=== PATIENT | female | born 1940 | race Caucasian/White ===

== ENCOUNTER 2019-04-08 11:24 | Emergency (ER) | payer MEDICARE, OTHER, SELFPAY ==
--- NOTE | ~2019-04-08 | XR_ITS ---
EXAMINATION: XR chest 2V DATE: 04/08/2019 12:34 INDICATION: Cough and congestion. TECHNIQUE: Frontal and lateral views of the chest were obtained. COMPARISON: Chest single view 02/17/2018, CT abdomen and pelvis 04/27/2017 FINDINGS: The lung volumes are normal. There are reticular opacities in the lower lung zones. No pleu ral effusion or pneumothorax. The heart size is normal. There is mild chronic anterior wedging of mul tiple thoracic vertebral bodies. IMPRESSION: 1. Mild chronic interstitial lung disease. Reviewed, dictated and finalized at location A. STRIAL ENGINEER
[2019-04-08 11:27] VITALS: BP 162/92; PULSE 72; RESP 16; TEMP 37.4; O2SAT 97
--- NOTE | 2019-04-08 12:40 | ED.URI ---
HPI - URI/Sore Throat General Chief Complaint: Upper Respiratory Infection Stated Complaint: Fever, ST, flu? Time Seen by Provider: 04/08/19 12:40 Source: patient Mode of arrival: ambulatory Limitations: no limitations History of Present Illness HPI Narrative: A 79 y/o female presents to the ED with c/o a productive cough with green phlegm since Thursday (3 days ago). Pt has been taking cold medicine with no relief. Pt took a cough drop this morning. She reports rhinorrhea, a sore throat, a 100 degree F fever last night, a wheeze, and a TAYLOR, but denies an earache, tinnitus, SOB, sick contacts, and a PMHx of lung problems. Pt notes that she had a syncopal episode last month and she has been wearing a heart monitor since. Onset (ago): day(s) (3) Description of mucous: green Treatments prior to arrival: cold medicine and other (cough drop) Related Data Home Medications Medication Instructions Recorded Confirmed aspirin 81 mg tablet,delayed 81 mg PO DAILY 03/01/19 03/11/19 release donepezil 10 mg tablet 10 mg PO DAILY 03/01/19 03/11/19 levothyroxine 88 mcg tablet 88 mcg PO DAILY 03/01/19 03/11/19 multivitamin with minerals 1 tablet PO DAILY 03/01/19 03/11/19 amlodipine 04/08/19 indapamide mg 04/08/19 Allergies Allergy/AdvReac Type Severity Reaction Status Date / Time codeine Allergy Intermediate vision Verified 04/08/19 11:57 changes sulfamethoxazole Allergy Mild couldn't Verified 04/08/19 11:57 urinate, Back Pain topiramate Allergy Mild Can't Verified 04/08/19 11:57 urinate trimethoprim Allergy Mild couldn't Verified 04/08/19 11:57 urinate, back pain Review of Systems Review of Systems: All systems reviewed & are unremarkable except as noted in HPI and below Constitutional: Constitutional: Reports fever(s) (100 degree F) ENT: Reports sore throat Comments: Reports: rhinorrhea Respiratory: Respiratory: Reports cough (productive with green phlegm), Denies dyspnea and Reports wheezing Neurologic: Reports headache(s) PMFSH Past Medical History Medical History Anemia Arthritis Back pain CAD (coronary artery disease) Mid left anterior descending stent in 2016 at [place] Chronic headaches Dementia GERD (gastroesophageal reflux disease) Heart attack Hemorrhoids Hypercholesteremia Hypertension Hypothyroidism Pneumonia Rectal polyp Surgical History Surgical History H/O bilateral cataract extraction History of hernia surgery History of hysterectomy History of lumpectomy X3 that were benign. History of spinal surgery History of tonsillectomy History of total right knee replacement Hx of cardiac catheterization Family History Family History Sibling Acute myocardial infarction, Onset Age: 73 Cerebrovascular accident, Onset Age: 52 Family history of lung cancer, Onset Age: 72 Patient's sister is Patient's brother is Father Cerebrovascular accident, Onset Age: 83 Patient's father is Mother Patient's mother is Heart disease Social History Social History Social History: The patient is To Colton who is her power trademark attorney. She desires to be a full code. She has 2 children. She is retired from working at a [employer] company Smoking status: Never smoker Second hand tobacco smoke exposure: Yes Alcohol intake: never Substance use: never Gender identity (if verbalized by the patient): Female Spiritual care concerns: No Agree to blood products: Yes Comments No PCP on file. Exam Narrative: Exam Narrative: GENERAL: well-nourished, and in no acute distress. HEAD: Normocephalic, atraumatic EYES: PERRLA and EOMI, conjunctiva clear without discharge EARS: TM's clear bilaterally
--- NOTE | 2019-04-08 13:49 | PC.NURSE ---
THIS RN WAS ABLE TO CALL AND SPEAK TO PT ON HOME PHONE. EXPLAINED THAT PT HAS PRESCRIPTIONS AT [facility] AND PT VOICED UNDERSTANDING.
== END 2019-04-08 13:20 | disposition home or self-care (01) ==
PROVIDERS: Emergency Provider General Practice; PCP Internal Medicine
DX: J06.9 Acute upper respiratory infection, unspecified (principal); M19.90 Unspecified osteoarthritis, unspecified site; I25.10 Atherosclerotic heart disease of native coronary artery without angina pectoris; F03.90 Unspecified dementia, unspecified severity, without behavioral disturbance, psychotic disturbance, mood disturbance, and anxiety; K21.9 Gastro-esophageal reflux disease without esophagitis; I25.2 Old myocardial infarction; E78.00 Pure hypercholesterolemia, unspecified; I10 Essential (primary) hypertension; E03.9 Hypothyroidism, unspecified; Z87.19 Personal history of other diseases of the digestive system; Z98.42 Cataract extraction status, left eye; Z98.41 Cataract extraction status, right eye; Z96.651 Presence of right artificial knee joint; Z95.5 Presence of coronary angioplasty implant and graft
CPT/HCPCS: 71046; 87804; 99283

== ENCOUNTER 2019-08-03 23:20 | Emergency (ER) | payer MEDICARE, OTHER, SELFPAY ==
--- NOTE | ~2019-08-03 | CT_ITS ---
EXAMINATION: CT brain wo con DATE: 08/04/2019 00:15 INDICATION: Weakness TECHNIQUE: Computed tomography (CT) of the head was performed without intravenous contrast. Sagittal and coronal reconstructions were performed. The mA was adjusted according to patient size. Iterative reconstruction technique was employed. The dose-length product was 529.67 mGy-cm. COMPARISON: head CT dated 03/11/2019 FINDINGS: No acute intracranial hemorrhage, acute infarction or abnormal extra axial fluid collection. There is minimal scattered white matter hypoattenuation consistent with chronic small vessel ischemic disease . Symmetric prominence of the sulci consistent with mild age-appropriate diffuse cerebral volume loss . Ventricles are normal and symmetric. No mass/mass effect. Changes of right intraocular lens replace ment. The orbits, paranasal sinuses and mastoid air cells are normal. Intracranial calcified cerebral atherosclerosis is noted. IMPRESSION: 1. No acute intracranial process. 2. Age-related changes including mild diffuse volume loss and minimal scattered white matter hypoatte nuation consistent with chronic small vessel ischemic disease. Reviewed, dictated and finalized at location A. IMPRESSION: 1. No acute intracranial process. 2. Age-related changes including mild diffuse volume loss and minimal scattered white matter hypoattenuation consistent with chronic small vessel ischemic dis ease.
--- NOTE | ~2019-08-03 | XR_ITS ---
EXAMINATION: XR chest 2V DATE: 08/04/2019 00:19 INDICATION: Weakness TECHNIQUE: frontal and lateral views of the chest were obtained. COMPARISON: Chest radiograph dated 04/08/2019 FINDINGS: Minimal left basilar atelectasis. No pulmonary edema, pleural effusion or pneumothorax. The cardiomed iastinal silhouette is normal. Moderate scattered degenerative skeletal changes in the spine and at b oth shoulders. IMPRESSION: 1. Minimal left basilar atelectasis. Reviewed, dictated and finalized at location A.
--- NOTE | 2019-08-03 23:15 | ED.GENADULT ---
HPI - General Adult General Chief complaint: Weakness Stated complaint: weakness Source: patient and EMS Mode of arrival: EMS Limitations: no limitations History of Present Illness HPI narrative: Patient is a 79-year-old female who presents to the emergency department for evaluation of weakness. Patient reports having an episode of nausea, vomiting, diarrhea this evening, has felt very weak this evening and called EMS to bring her to our facility for assessment. Patient denies any numbness, no headache or vision changes, no chest pain or abdominal pain. Patient cannot recall what she ate for dinner. She denies any fever, cough, shortness of breath, recent medication changes, recent illness or sick contacts. No focal numbness or weakness. Related Data Home Medications Medication Instructions Recorded Confirmed aspirin 81 mg tablet,delayed 81 mg PO DAILY 03/01/19 03/11/19 release donepezil 10 mg tablet 10 mg PO DAILY 03/01/19 03/11/19 multivitamin with minerals 1 tablet PO DAILY 03/01/19 03/11/19 amlodipine 04/08/19 indapamide mg 04/08/19 Allergies Allergy/AdvReac Type Severity Reaction Status Date / Time codeine Allergy Intermediate vision Verified 04/08/19 11:57 changes sulfamethoxazole Allergy Mild couldn't Verified 04/08/19 11:57 urinate, Back Pain topiramate Allergy Mild Can't Verified 04/08/19 11:57 urinate trimethoprim Allergy Mild couldn't Verified 04/08/19 11:57 urinate, back pain Review of Systems Review of Systems: Narrative: CONSTITUTIONAL: Denies fever, chills, or sweats. EYES: Denies visual changes, redness, or discharge. ENT: Denies rhinorrhea, congestion, sore throat, or otalgia. CARDIOVASCULAR: Denies chest pain, palpitations, or edema. RESPIRATORY: Denies cough or dyspnea. GASTROINTESTINAL: Denies abdominal pain, reports 1 episode of vomiting, reports one episode of diarrhea GENITOURINARY: Denies dysuria or hematuria. SKIN: Denies rash or itching. MUSCULOSKELETAL: Denies back pain, joint pain, or myalgia. 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 She desires to be a full code. She has 2 children. She is retired from working at a [employer] company Smoking status: Never smoker Second hand tobacco smoke exposure: Yes Alcohol intake: never Substance use: never Gender identity (if verbalized by the patient): Female Spiritual care concerns: No Agree to blood products: Yes Exam Narrative: Exam Narrative: GENERAL: Awake, alert, conversant HEAD: Normocephalic, atraumatic. EYES: PERRLA and EOMI. ENT: Nares clear, no rhinorrhea or epistaxis. Mucous membranes moist. NECK: Supple. CHEST: No respiratory distress, breathing even and non labored HEART: Regular rate, sinus rhythm ABDOMEN:Non distended, non tender EXTREMITIES: Normal range of motion. No edema. SKIN: Warm, dry, no rash. NEURO:No focal deficits. Alert and oriented x3.EOMs intact without nystagmus. No facial droop/asymmetry noted bilaterally. Grimace intact. Intact sensation in face. Hearing intact bilaterally. Shoulder shrug intact. Strength 5/5 bilateral upper extremities. Strength 5/5 bilateral lower extremities. Reflexes 2+ patellar. Ambulatory exam deferred. Course Course Emergency Course: Patient presented to the emergency department for evaluation of episode of vomiting, diarrhea and near syncope. At the time of assessment, ABCs are intact and vital signs are stable. No focal neurological deficits on exam. Laboratory work-up is reassuring. No severe leukocytosis or lactic acidosis, no signs to suggest severe sepsis or septic shock. No signs of acute stroke or intracranial abnormalities on imaging. No elevation in troponin or ischemic EKG changes. No UTI. Patient was given IV fluids, able to ambulate in the
[2019-08-03 23:22] VITALS: BP 127/60; PULSE 68; RESP 21; TEMP 35.8; O2SAT 99
[2019-08-03 23:54] LABS: Basophils Percent Auto 0.5 % (0.2-1.2); Eosinophils Absolute Auto 0.1 K/mm3 (0-0.3); Eosinophils Percent Auto 0.6 % (0-4.4); Hematocrit 37.1 % (37.0-47.0); Hemoglobin 12.4 g/dL (12.0-15.0); Immature Granulocyte Absolute 0.03 K/mm3 (0.00-0.031); Immature Granulocyte Percent A 0.3 % (0-0.5); Lymphocytes Absolute Auto 2.25 K/mm3 (0.9-3.2); Mean Corpuscular HGB Conc 33.4 g/dl (32-36); Mean Corpuscular Hemoglobin 29.9 pg (26-34); Mean Corpuscular Volume 89.4 fl (80-100); Mean Platelet Volume 10.6 fl (7.4-10.4); Monocytes Absolute Auto 0.6 K/mm3 (0.1-0.6); Monocytes Percent Auto 6.7 % (2.6-8.5); Neutrophils Absolute Auto 5.7 K/mm3 (1.3-6.7); Neutrophils Percent Auto 65.9 % (45.5-73.1); Platelet Count Result 219 k/mm3 (150-375); Red Blood Count 4.15 M/mm3 (4.2-5.4); Red Cell Distribution Width 14.1 % (11.5-14.5); White Blood Count 8.7 K/mm3 (4.5-10.0)
[2019-08-04 00:05] LABS: Prothrombin Time 12.5 Seconds (11.1-14.7)
--- NOTE | 2019-08-04 00:05 | PC.NURSE ---
pt states she isn't nauseated at this time. this rn holding md randell notified. pt instructed to let this rn know if she develops nausea. pt going to CT & xray at this time be stretcher.
[2019-08-04 00:06] LABS: Lactic Acid Reflex 2.2 mmol/L (0.7-2.1); Partial Thromboplastin Time 30.9 SECONDS (22.3-36.8)
[2019-08-04 00:07] LABS: Lipase 197 U/L (23-300)
[2019-08-04 00:14] LABS: Alanine Aminotransferase 19 U/L (4-35); Albumin Level 4.5 g/dL (3.5-5.1); Alkaline Phosphatase 94 U/L (38-126); Aspartate Amino Transferase 29 U/L (14-36); Bilirubin,Total 0.3 mg/dL (0.2-1.3); Blood Urea Nitrogen 19 mg/dL (7-17); CRP < 0.5 mg/dL (<1.0); Calcium 9.2 mg/dL (8.4-10.2); Carbon Dioxide 24 mmol/L (22-30); Chloride 102 mmol/L (98-107); Estimated Glomerular Filt Rate > 60; Glucose 138 mg/dL (65-105); Potassium 3.8 mmol/L (3.4-5.0); Sodium 138 mmol/L (137-145)
[2019-08-04 00:19] LABS: Add Urine Microscopic? YES; Appearance Urine Clear (Clear); Bacteria Urine Trace /hpf; Bilirubin Urine Negative (Negative); Blood Urine Negative (Negative); Color Urine Straw (Yellow); Glucose Urine UA Negative (Negative); Ketones Urine 1+ mg/dL (Negative); Leukocyte Esterase Ur Negative LEU/UL (Negative); Mucus Urine Rare /lpf; Nitrate Urine Negative (Negative); Protein Urine Negative (Negative); Specific Grav Ur 1.011 (1.001-1.035); Urobilinogen Urine Negative mg/dL (<2.0); WBC Urine 0-3 /hpf
[2019-08-04 00:19] LABS: Troponin I < 0.012 ng/mL (0.000-0.034)
[2019-08-04 00:37] LABS: Thyroid Stimulating Hormone 0.184 uIU/mL (0.465-4.680)
[2019-08-04 00:45] VITALS: BP 130/81; PULSE 62; RESP 16; O2SAT 99
[2019-08-04] MEDS: SODIUM CHLORIDE 0.9% IV 1,000 ML 999 ML IV CONT (00:46)
[2019-08-04 01:18] VITALS: BP 138/78; PULSE 67; RESP 16; O2SAT 96
--- NOTE | 2019-08-04 01:26 | PC.NURSE ---
pt given water per md verbal order. pt ambulated to restroom w/ no difficulty.
[2019-08-04 01:50] VITALS: BP 136/67; PULSE 65; RESP 15; O2SAT 94
[2019-08-04] MEDS: ONDANSETRON INJ 4 MG/2 ML VIAL (01:50)
[2019-08-04 02:52] LABS: Reflex Lactic Acid Yes or No Add Lactic
== END 2019-08-04 01:50 | disposition home or self-care (01) ==
PROVIDERS: Emergency Provider Emergency Medicine; PCP Internal Medicine
DX: E86.0 Dehydration (principal); R11.0 Nausea
CPT/HCPCS: 36415; 70450; 71046; 80053; 81001; 83605; 83690; 84443; 84484; 85025; 85610; 85730; 86140; 87040; 96361; 96374; 99284; J2405; J7030

== ENCOUNTER 2020-06-20 17:35 | Emergency (ER) | payer MEDICARE, SELFPAY ==
--- NOTE | ~2020-06-20 | XR_ITS ---
EXAMINATION: XR chest 2V DATE: 06/20/2020 18:36 INDICATION: Weakness, nausea and vomiting TECHNIQUE: PA and lateral views of the chest were obtained. COMPARISON: Chest radiograph dated 08/04/2019 FINDINGS: Again seen is minimal streaky left basilar atelectasis/scarring. No new airspace opacities, pulmonary edema, pleural effusion or pneumothorax. The cardiomediastinal silhouette is normal. Tortuous athero sclerotic aorta. Thoracic kyphosis with chronic minimal to mild anterior wedging of a few mid and low er thoracic vertebral bodies. Moderate thoracic spondylosis. IMPRESSION: 1. Unchanged minimal left basilar atelectasis/scarring. Reviewed, dictated and finalized at location A.
[2020-06-20 18:05] VITALS: BP 151/93; PULSE 65; RESP 18; TEMP 36.1; O2SAT 99
--- NOTE | 2020-06-20 18:10 | ECG_ITS ---
Measurements Intervals [place] Rate: 62 P: -1 MD: 175 QRS: -45 QRSD: 94 T: 15 QT: 351 QTc: 357 Interpretive Statements SINUS RHYTHM LEFT AXIS DEVIATION VOLTAGE CRITERIA FOR LVH BORDERLINE R WAVE PROGRESSION, ANTERIOR LEADS BASELINE ARTIFACT- I, II, III, AVR, AVL BORDERLINE ECG Electronically Signed On 06-21-2020 7:05:34 CDT by Quentin Jay D.O.
[2020-06-20 18:21] LABS: Basophils Percent Auto 0.3 % (0.2-1.2); Eosinophils Percent Auto 0.2 % (0-4.4); Hematocrit 37.1 % (37.0-47.0); Hemoglobin 12.4 g/dL (12.0-15.0); Immature Granulocyte Absolute 0.02 K/mm3 (0.00-0.031); Immature Granulocyte Percent A 0.2 % (0-0.5); Lymphocytes Absolute Auto 1.32 K/mm3 (0.9-3.2); Lymphocytes Percent Auto 15.1 % (18.3-44.2); Mean Corpuscular HGB Conc 33.4 g/dl (32-36); Mean Corpuscular Hemoglobin 29.3 pg (26-34); Mean Corpuscular Volume 87.7 fl (80-100); Mean Platelet Volume 9.5 fl (7.4-10.4); Monocytes Absolute Auto 0.5 K/mm3 (0.1-0.6); Monocytes Percent Auto 5.5 % (2.6-8.5); Neutrophils Absolute Auto 6.9 K/mm3 (1.3-6.7); Neutrophils Percent Auto 78.7 % (45.5-73.1); Platelet Count Result 259 k/mm3 (150-375); Red Blood Count 4.23 M/mm3 (4.2-5.4); Red Cell Distribution Width 13.6 % (11.5-14.5); White Blood Count 8.8 K/mm3 (4.5-10.0)
[2020-06-20 18:33] LABS: Alanine Aminotransferase 14 U/L (4-35); Albumin Level 4.5 g/dL (3.5-5.1); Alkaline Phosphatase 91 U/L (38-126); Anion Gap 5 mmol/L (8-16); Aspartate Amino Transferase 32 U/L (14-36); Bilirubin,Total 0.7 mg/dL (0.2-1.3); Blood Urea Nitrogen 18 mg/dL (7-17); Calcium 9.5 mg/dL (8.4-10.2); Carbon Dioxide 32 mmol/L (22-30); Chloride 104 mmol/L (98-107); Estimated Glomerular Filt Rate 36; Glucose 129 mg/dL (65-105); Sodium 141 mmol/L (137-145)
[2020-06-20 19:01] VITALS: BP 187/84; PULSE 60; RESP 13; O2SAT 98
[2020-06-20 20:01] LABS: Add Urine Microscopic? YES; Appearance Urine Clear (Clear); Bilirubin Urine Negative (Negative); Blood Urine Negative (Negative); Color Urine Yellow (Yellow); Glucose Urine UA Negative (Negative); Ketones Urine Negative (Negative); Leukocyte Esterase Ur Negative LEU/UL (Negative); Mucus Urine Rare /lpf; Nitrate Urine Negative (Negative); Protein Urine 1+ mg/dL (Negative); RBC Urine 0-2 /hpf (0-2); Specific Grav Ur 1.013 (1.001-1.035); Urobilinogen Urine Negative mg/dL (<2.0); WBC Urine 0-3 /hpf
--- NOTE | 2020-06-20 20:19 | ED.NAVMDI ---
HPI - Nausea/Vomiting/Diarrhea General Chief complaint: Nausea/Vomiting/Diarrhea Stated complaint: n/v, feeling faint Time Seen by Provider: 06/20/20 19:00 Source: patient and family Mode of arrival: ambulatory Limitations: no limitations History of Present Illness HPI Narrative: 80-year-old female Fairly healthy except for hypothyroid and slight dementia Presents because of episodes of nausea and vomiting today No one else is sick and she cannot think of anything that she might of consumed which would have triggered or caused this She does not have any abdominal pain, she does not have a fever, and she does not have any diarrhea Denies urinary complaints Many years ago she had a hysterectomy but no other abdominal procedures Currently is been about 3-1/2 hours since the last time she vomited Related Data Home Medications Medication Instructions Recorded Confirmed aspirin 81 mg tablet,delayed 81 mg PO DAILY 03/01/19 11/07/19 release donepezil 10 mg tablet 10 mg PO DAILY 03/01/19 11/07/19 multivitamin with minerals 1 tablet PO DAILY 03/01/19 11/07/19 amlodipine 04/08/19 11/07/19 indapamide mg 04/08/19 11/07/19 Allergies Allergy/AdvReac Type Severity Reaction Status Date / Time codeine Allergy Intermediate vision Verified 04/08/19 11:57 changes sulfamethoxazole Allergy Mild couldn't Verified 04/08/19 11:57 urinate, Back Pain topiramate Allergy Mild Can't Verified 04/08/19 11:57 urinate trimethoprim Allergy Mild couldn't Verified 04/08/19 11:57 urinate, back pain Review of Systems Review of Systems: All systems reviewed & are unremarkable except as noted in HPI and below Constitutional: Constitutional: Reports no additional constitutional complaints, Denies chills, Reports fatigue, Denies fever(s), Denies headache(s) and Reports weakness Eyes: Eyes: Reports no additional eye complaints and Denies change in vision ENT: Denies headache(s) and Denies sore throat Cardiovascular: Cardiovascular: Denies chest pain and Denies dyspnea Respiratory: Respiratory: Denies cough and Denies dyspnea Gastrointestinal: Gastrointestinal: Denies abdominal pain, Denies bloating, Denies diarrhea, Reports nausea and Reports vomiting Genitourinary: Genitourinary: Denies urinary frequency, Denies nocturia, Denies dysuria and Denies flank pain Musculoskeletal: Musculoskeletal: Denies myalgias, Denies deformity and Denies numbness Integumentary/Breasts: Skin/Breast: Denies rash and Denies wounds Neurologic: Denies headache(s), Denies focal weakness and Denies numbness Psychiatric: Psychiatric: Reports no additional psychiatric complaints Endocrine: Endocrine: Reports no additional endocrine complaints Hematologic/Lymphatic: Hematologic/Lymphatic: Reports no additional hematologic/lymphatic complaints Allergic/Immunologic: Allergic/Immunologic: Reports no additional allergic/immunologic complaints [facility] Past Medical History Medical History (Updated 06/20/20 @ 20:24 by Alonso Hobson MD) Anemia Arthritis Back pain CAD (coronary artery disease) Mid left anterior descending stent in 2016 at [facility] Dementia GERD (gastroesophageal reflux disease) Heart attack Hemorrhoids Hypercholesteremia Hypertension Hypothyroidism Pneumonia Rectal polyp Surgical History Surgical History H/O bilateral cataract extraction History of hernia surgery History of hysterectomy History of lumpectomy X3 that were benign. History of spinal surgery History of tonsillectomy History of total right knee replacement Hx of cardiac catheterization Family History Family History Sibling Acute myocardial infarction, Onset Age: 73 Cerebrovascular accident, Onset Age: 52 Family history of lung cancer, Onset Age: 72 Patient's sister is Patient's bro
[2020-06-20] MEDS: LACTATED RINGERS 1,000 ML 999 ML IV CONT (20:29)
[2020-06-20] MEDS: ONDANSETRON INJ 4 MG/2 ML VIAL IV PUSH (20:29)
[2020-06-20 20:39] VITALS: BP 176/77; PULSE 64; RESP 17
[2020-06-20 21:25] VITALS: BP 173/70; PULSE 68; RESP 18; O2SAT 97
== END 2020-06-20 21:25 | disposition home or self-care (01) ==
PROVIDERS: Emergency Medicine; Emergency Provider Emergency Medicine; PCP Internal Medicine
DX: R11.2 Nausea with vomiting, unspecified (principal); E03.9 Hypothyroidism, unspecified; F03.90 Unspecified dementia, unspecified severity, without behavioral disturbance, psychotic disturbance, mood disturbance, and anxiety; I25.10 Atherosclerotic heart disease of native coronary artery without angina pectoris; I25.2 Old myocardial infarction; E78.00 Pure hypercholesterolemia, unspecified; I10 Essential (primary) hypertension; K21.9 Gastro-esophageal reflux disease without esophagitis; M19.90 Unspecified osteoarthritis, unspecified site; Z95.5 Presence of coronary angioplasty implant and graft; Z87.19 Personal history of other diseases of the digestive system; Z98.42 Cataract extraction status, left eye; Z98.41 Cataract extraction status, right eye; Z96.651 Presence of right artificial knee joint
CPT/HCPCS: 36415; 71046; 80053; 81001; 85025; 93005; 96361; 96374; 99284; J2405; J7120

== ENCOUNTER → 2020-07-14 02:16 | Outpatient (CLI) | payer MEDICARE, SELFPAY ==
[2020-07-14 19:56] LABS: SARS-CoV-2 RNA PCR Negative
== END ==
PROVIDERS: PCP Internal Medicine; Visit Provider Internal Medicine Gastroenterology
DX: Z01.812 Encounter for preprocedural laboratory examination (principal); Z20.822 Contact with and (suspected) exposure to COVID-19
CPT/HCPCS: C9803; U0003; U0005

== ENCOUNTER 2020-07-17 02:40 | Day surgery (SDC) | payer MEDICARE, OTHER, SELFPAY ==
[2020-07-06 09:59] VITALS: BMI 24.4
[2020-07-17 08:43] VITALS: BP 155/82; PULSE 56; RESP 18; TEMP 35.7; O2SAT 99; BMI 25.9
[2020-07-17] MEDS: LACTATED RINGERS 1,000 ML 150 ML IV CONT (08:56)
--- NOTE | 2020-07-17 09:18 | PM.HPGS ---
History of Present Illness History of Present Illness Consent: Risks, benefits, and alternatives have been discussed and questions answered. Patient agrees to proceed with procedure. Chief complaint: nausea, vomiting Narrative: Ligia Sanderson is a 80 year old female with been suffering from persistent nausea and vomiting. Investigation in the emergency room did not find a cause Review of Systems Review of Systems: All systems reviewed & are unremarkable except as noted in HPI and below PMFSH Past Medical History Medical History Anemia Arthritis Back pain CAD (coronary artery disease) Mid left anterior descending stent in 2016 at [facility] Dementia GERD (gastroesophageal reflux disease) Heart attack Hemorrhoids Hypercholesteremia Hypertension Hypothyroidism Pneumonia Rectal polyp Surgical History Surgical History H/O bilateral cataract extraction History of hernia surgery History of hysterectomy History of lumpectomy X3 that were benign. 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 She desires to be a full code. She has 2 children. She is retired from working at a [employer] Smoking status: Never smoker Second hand tobacco smoke exposure: Yes Alcohol intake: never Substance use: never Substance use type: does not use Living arrangements: with family Gender identity (if verbalized by the patient): Female Spiritual care concerns: No Agree to blood products: Yes Meds Home Medications and Allergies Home Medications Medication Instructions Recorded Confirmed Type aspirin 81 mg tablet,delayed 81 mg PO DAILY 03/01/19 07/06/20 History release multivitamin with minerals 1 tablet PO DAILY 03/01/19 07/06/20 History amlodipine 10 mg PO DAILY 04/08/19 07/06/20 History indapamide 1.25 mg PO DAILY 04/08/19 07/06/20 History levothyroxine 88 mcg tablet 88 mcg PO DAILY #90 tablet 02/19/20 07/06/20 Rx Allergies Allergy/AdvReac Type Severity Reaction Status Date / Time codeine Allergy Intermediate vision Verified 07/17/20 08:41 changes sulfamethoxazole Allergy Mild couldn't Verified 07/17/20 08:41 urinate, Back Pain topiramate Allergy Mild Can't Verified 07/17/20 08:41 urinate trimethoprim Allergy Mild couldn't Verified 07/17/20 08:41 urinate, back pain Vital Signs Vital Signs - 24 hr 07/17/20 08:43 Temperature 35.7 C L Pulse Rate 56 L Respiratory Rate 18 Blood Pressure 155/82 H Pulse Oximetry 99 Exam Const: General: alert Orientation/consciousness: patient oriented x3 Resp: Auscultation: clear to auscultation bilaterally Cardio: Rhythm: regular rhythm GI: GI Palp: Yes Soft to palpation and No Tenderness to palpation present (GI) Neuro: General: patient oriented x3 Assessment and Plan Assessment and plan (1) Nausea & vomiting: Qualifiers: Vomiting type: unspecified Vomiting Intractability: non-intractable Qualified Code(s): R11.2 - Nausea with vomiting, unspecified Code(s): R11.2 - Nausea with vomiting, unspecified Status: Acute Assessment and Plan: EGD with possible biopsy or dilata
--- NOTE | 2020-07-17 09:21 | WPDANESEPPF ---
Anes - Initial Pre Proc Eval Procedure: Operation Date: 07/17/20 10:00 Proposed Procedures p Esophagogastroduodenoscopy - Jeremy Bejarano MD Date/Time: 07/17/20 09:21 Surgeon: Jeremy Bejarano MD Pre Op Diagnosis: nausea, vomiting Patient Data Age: 80 Gender: F Height: 4 ft 10 in Weight: 56.2 kg Last Vital Signs Temp 96.3 F L 07/17/20 08:43 Pulse 56 L 07/17/20 08:43 Resp 18 07/17/20 08:43 BP 155/82 H 07/17/20 08:43 Pulse Ox 99 07/17/20 08:43 Allergies Allergy/AdvReac Type Severity Reaction Status Date / Time codeine Allergy Intermediate vision Verified 07/17/20 08:41 changes sulfamethoxazole Allergy Mild couldn't Verified 07/17/20 08:41 urinate, Back Pain topiramate Allergy Mild Can't Verified 07/17/20 08:41 urinate trimethoprim Allergy Mild couldn't Verified 07/17/20 08:41 urinate, back pain Home Medications Medication Instructions Recorded Confirmed Type aspirin 81 mg tablet,delayed 81 mg PO DAILY 03/01/19 07/06/20 History release multivitamin with minerals 1 tablet PO DAILY 03/01/19 07/06/20 History amlodipine 10 mg PO DAILY 04/08/19 07/06/20 History indapamide 1.25 mg PO DAILY 04/08/19 07/06/20 History levothyroxine 88 mcg tablet 88 mcg PO DAILY #90 tablet 02/19/20 07/06/20 Rx Patient hx anesthesia problems: none Family hx anesthesia problems: none PMFSH Past Medical History Medical History Anemia Arthritis Back pain CAD (coronary artery disease) Mid left anterior descending stent in 2016 at [place] Chronic headaches Dementia GERD (gastroesophageal reflux disease) Heart attack Hemorrhoids Hypercholesteremia Hypertension Hypothyroidism Pneumonia Rectal polyp Surgical History Surgical History H/O bilateral cataract extraction History of hernia surgery History of hysterectomy History of lumpectomy X3 that were benign. 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 She desires to be a full code. She has 2 children. She is retired from working at a [employer] company Smoking status: Never smoker Second hand tobacco smoke exposure: Yes Alcohol intake: never Substance use: never Substance use type: does not use Living arrangements: with family Gender identity (if verbalized by the patient): Female Spiritual care concerns: No Agree to blood products: Yes Anes - Eval Final PreProcedure Day of Procedure 07/17/20 09:21 Patient weight: normal Heart: regular rate and rhythm Lungs: clear to auscultation Airway: Mallampati scale class II Neurological: alert and oriented Last oral intake: >/= 8 hours ASA classification: III Emergent: no Anesthetic plan: proceed Anesthesia type and monitoring: general GIVS and standard monitoring Informed Consent: The patient's anesthetic plan and its attendant risks and benefits were discussed with the patient/family/POA. Questions were solicited and answers provided to the satisfaction of the patient/family/POA.
[2020-07-17] MEDS: BENZOCAINE (*SP) 60 ML SPRAY CAN (HURRICAINE) 1 SPRAY MUCOUS MEM (09:33)
[2020-07-17 09:39] VITALS: BP 123/63; PULSE 52; RESP 17; O2SAT 98
[2020-07-17 09:49] VITALS: BP 119/63; PULSE 56; RESP 20; O2SAT 98
[2020-07-17 09:59] VITALS: BP 165/82; PULSE 49; RESP 19; O2SAT 97
== END 2020-07-17 10:11 | disposition home or self-care (01) ==
PROVIDERS: PCP Internal Medicine; Visit Provider Internal Medicine Gastroenterology
PROC: 0DJ08ZZ Inspection of Upper Intestinal Tract, Via Natural or Artificial Opening Endoscopic (ICD-10-PCS; CPT 43235; principal; 2020-07-17 10:00)
DX: R11.2 Nausea with vomiting, unspecified (principal); K21.9 Gastro-esophageal reflux disease without esophagitis; I25.10 Atherosclerotic heart disease of native coronary artery without angina pectoris; I10 Essential (primary) hypertension; I25.2 Old myocardial infarction; E03.9 Hypothyroidism, unspecified; E78.00 Pure hypercholesterolemia, unspecified; M19.90 Unspecified osteoarthritis, unspecified site; M54.9 Dorsalgia, unspecified; F03.90 Unspecified dementia, unspecified severity, without behavioral disturbance, psychotic disturbance, mood disturbance, and anxiety; Z86.010 Personal history of colon polyps; Z98.42 Cataract extraction status, left eye; Z98.41 Cataract extraction status, right eye; Z90.710 Acquired absence of both cervix and uterus; Z96.651 Presence of right artificial knee joint; Z87.19 Personal history of other diseases of the digestive system
CPT/HCPCS: 43239; 87081; J2704; J7120

== ENCOUNTER 2022-02-19 10:47 | Emergency (ER) | payer MEDICARE, OTHER, SELFPAY ==
--- NOTE | ~2022-02-19 | XR_ITS ---
Lumbosacral Spine: AP and lateral views Clinical History: Pain COMPARISON: 11/10/2014 Findings: The normal lordotic curve is maintained. No fracture seen. Grade 1 anterolisthesis of L4 ov er L5 present. The intervertebral disc spaces are preserved. Extensive facet joint degenerative lemons es are present from L2 through S1. The sacroiliac joints are normally outlined. Impression: Extensive facet joint or changes, similar to prior exam. Stable grade 1 anterolisthesis of L4 over L5. Reviewed, dictated and finalized at location M. S[facility]AMP Impression: Extensive facet joint or changes, similar to prior exam. Stable grade 1 anterolisthesis of L4 over L5.
--- NOTE | ~2022-02-19 | CT_ITS ---
Noncontrast CT scan of the cervical spine Technique: Multiple contiguous axial [address] images of the cervical spine were obtained and rec onstructed in 2D sagittal and coronal planes on the acquisition scanner. Dose reduction technique was used on this scan by utilizing automated exposure control, adjustment of the mA and/or kV according to patient size. Clinical History: Pain COMPARISON: 03/11/2019 Findings: No fractures or dislocations. Scattered facet joint degenerative changes are present. The intervertebral disc spaces are preserved. No prevertebral soft tissue swelling. Impression: No fracture or subluxation of the cervical spine. Reviewed, dictated and finalized at location M. WORKER Impression: No fracture or subluxation of the cervical spine.
--- NOTE | ~2022-02-19 | CT_ITS ---
EXAMINATION: CT brain wo con DATE: 02/19/2022 12:09 INDICATION: Fall with head injury and loss of consciousness TECHNIQUE: Computed tomography (CT) of the head was performed without intravenous contrast. Sagittal and coronal reconstructions were performed. The mA was adjusted according to patient size. Iterative reconstruction technique was employed. The dose-length product was 529.67 mGy-cm. COMPARISON: head CT dated 08/04/2019 FINDINGS: No fracture. No acute intracranial hemorrhage, acute infarction or abnormal extra axial fluid collect ion. There is minimal scattered white matter hypoattenuation consistent with chronic small vessel isc hemic disease. Symmetric prominence of the sulci consistent with mild age-appropriate diffuse cerebra l volume loss. Ventricles are normal and symmetric. No mass/mass effect. Changes of bilateral intraoc ular lens replacement. The orbits, paranasal sinuses and mastoid air cells are normal. IMPRESSION: 1. No fracture or acute intracranial process. 2. Age-related changes including mild diffuse volume loss and minimal scattered white matter hypoatte nuation consistent with chronic small vessel ischemic disease. Reviewed, dictated and finalized at location A. ER SKIN DIVER IMPRESSION: 1. No fracture or acute intracranial process. 2. Age-related changes including mild diffuse volume loss and minimal scattered white matter hypoattenuation consistent with chronic small vessel ischemic dis ease.
[2022-02-19 11:14] VITALS: BP 132/71; PULSE 67; RESP 16; TEMP 36.7; O2SAT 96
--- NOTE | 2022-02-19 11:50 | PC.NURSE ---
Dr. Enamorado at bedside to assess pt.
--- NOTE | 2022-02-19 12:17 | PC.NURSE ---
Patient off unit to CT.
[2022-02-19 12:50] LABS: Basophils Percent Auto 0.5 % (0.2-1.2); Eosinophils Absolute Auto 0.1 K/mm3 (0-0.3); Eosinophils Percent Auto 1.2 % (0-4.4); Hematocrit 42.8 % (37.0-47.0); Hemoglobin 13.8 g/dL (12.0-15.0); Immature Granulocyte Absolute 0.02 K/mm3 (0.00-0.031); Immature Granulocyte Percent A 0.4 % (0-0.5); Lymphocytes Absolute Auto 0.93 K/mm3 (0.9-3.2); Lymphocytes Percent Auto 16.5 % (18.3-44.2); Mean Corpuscular HGB Conc 32.2 g/dl (32-36); Mean Corpuscular Hemoglobin 29.5 pg (26-34); Mean Corpuscular Volume 91.5 fl (80-100); Monocytes Absolute Auto 0.2 K/mm3 (0.1-0.6); Monocytes Percent Auto 3.6 % (2.6-8.5); Neutrophils Absolute Auto 4.4 K/mm3 (1.3-6.7); Neutrophils Percent Auto 77.8 % (45.5-73.1); Platelet Count Result 216 k/mm3 (150-375); Red Blood Count 4.68 M/mm3 (4.2-5.4); Red Cell Distribution Width 13.8 % (11.5-14.5); White Blood Count 5.6 K/mm3 (4.5-10.0)
[2022-02-19 12:53] LABS: Add Urine Microscopic? YES; Appearance Urine Slightly Cloudy (Clear); Bilirubin Urine Negative (Negative); Blood Urine Negative (Negative); Color Urine Yellow (Yellow); Glucose Urine UA Negative (Negative); Ketones Urine Negative (Negative); Leukocyte Esterase Ur Trace LEU/UL (Negative); Nitrate Urine Negative (Negative); Protein Urine Trace mg/dL (Negative); Specific Grav Ur >= 1.030 (1.001-1.035); Urobilinogen Urine 0.2 mg/dL (<2.0); pH Urine 5.5 (5.0-9.0)
[2022-02-19 12:59] LABS: Alanine Aminotransferase 23 U/L (6-35); Albumin Level 4.1 g/dL (3.5-5.1); Alkaline Phosphatase 108 U/L (38-126); Anion Gap 8 mmol/L (8-16); Aspartate Amino Transferase 28 U/L (14-36); Bilirubin,Total 0.4 mg/dL (0.2-1.3); Blood Urea Nitrogen 13 mg/dL (7-17); Calcium 8.6 mg/dL (8.4-10.2); Carbon Dioxide 28 mmol/L (22-30); Chloride 108 mmol/L (98-107); Estimated Glomerular Filt Rate 43; Glucose 99 mg/dL (65-110); Sodium 144 mmol/L (137-145)
[2022-02-19 13:03] LABS: Mucus Urine Few /lpf; Squamous Epithelial Cell Urine Few /hpf (Few); WBC Urine 16-20 /hpf
[2022-02-19 13:05] LABS: INR 1.2; Prothrombin Time 14.3 Seconds (11.1-14.7)
[2022-02-19 13:06] LABS: Partial Thromboplastin Time 37.3 SECONDS (22.3-36.8)
--- NOTE | 2022-02-19 14:18 | ED.FALL ---
HPI - Fall General Chief Complaint: Fall Stated Complaint: glf off bed rt back pain Time Seen by Provider: 02/19/22 11:44 Source: patient and RN notes reviewed Mode of arrival: ambulatory Limitations: no limitations History of Present Illness HPI Narrative: This is an 81 year old female who presents for evaluation after a fall. She states she accidentally fell last night. SHe is unsure of the cause of her fall but she denies dizziness. She states she thinks she hit back of her head. She also reports right lower back pain and neck pain since her fall. She has been taking tylenol for her pain. She denies chest pain, sob, abdominal pain, or urinary symptoms. Her pain is worse with movement. She has not taken anything for pain today. Related Data Home Medications Medication Instructions Recorded Confirmed aspirin 81 mg tablet,delayed 81 mg PO DAILY 03/01/19 08/14/21 release (Adult Low Dose Aspirin) multivitamin with minerals 1 tablet PO DAILY 03/01/19 08/14/21 (Hair,Skin and Nails tablet) indapamide 1.25 mg tablet 1.25 mg PO DAILY 04/08/19 08/14/21 Allergies Allergy/AdvReac Type Severity Reaction Status Date / Time codeine Allergy Intermediate vision Verified 02/19/22 11:16 changes sulfamethoxazole Allergy Mild couldn't Verified 02/19/22 11:16 urinate, Back Pain topiramate Allergy Mild Can't Verified 02/19/22 11:16 urinate trimethoprim Allergy Mild couldn't Verified 02/19/22 11:16 urinate, back pain Review of Systems Constitutional: Constitutional: Denies weakness Cardiovascular: Cardiovascular: Denies syncope, Denies rapid heart rate, Denies irregular heart rhythm, Denies leg edema and Denies dyspnea Respiratory: Respiratory: Denies chest congestion, Denies hemoptysis, Denies excessive phlegm production and Denies dyspnea Gastrointestinal: Gastrointestinal: Denies abdominal pain, Denies hematochezia, Denies diarrhea and Denies vomiting Genitourinary: Genitourinary: Denies hematuria and Denies dysuria Musculoskeletal: Musculoskeletal: Reports back pain, Denies joint swelling, Denies loss of height and Denies muscle weakness Neurologic: Denies syncope, Denies focal weakness and Denies weakness [facility] Past Medical History Medical History (Updated 02/19/22 @ 14:27 by Blessing Enamorado MD) Anemia Arthritis Back pain CAD (coronary artery disease) Mid left anterior descending stent in 2016 at [place] Chronic headaches Dementia GERD (gastroesophageal reflux disease) Heart attack Hemorrhoids Hypercholesteremia Hypertension Hypothyroidism Pneumonia Rectal polyp Surgical History Surgical History H/O bilateral cataract extraction History of hernia surgery History of hysterectomy History of lumpectomy X3 that were benign. 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 She desires to be a full code. She has 2 children. She is retired from working at a [employer] company Smoking status: Never smoker Second hand tobacco smoke exposure: Yes Alcohol intake: never Substance use: never Substance use type: does not use Gender identity (if verbalized by the patient): Female Spiritual care concerns: No Agree to blood products: Yes
[2022-02-19 14:50] VITALS: BP 148/75; PULSE 52; RESP 18; O2SAT 98
== END 2022-02-19 14:52 | disposition home or self-care (01) ==
PROVIDERS: Emergency Provider General Practice; PCP Internal Medicine
DX: S39.92XA Unspecified injury of lower back, initial encounter (principal); S09.90XA Unspecified injury of head, initial encounter; N39.0 Urinary tract infection, site not specified; I25.10 Atherosclerotic heart disease of native coronary artery without angina pectoris; F03.90 Unspecified dementia, unspecified severity, without behavioral disturbance, psychotic disturbance, mood disturbance, and anxiety; I25.2 Old myocardial infarction; E78.00 Pure hypercholesterolemia, unspecified; I10 Essential (primary) hypertension; E03.9 Hypothyroidism, unspecified; K21.9 Gastro-esophageal reflux disease without esophagitis; Z86.2 Personal history of diseases of the blood and blood-forming organs and certain disorders involving the immune mechanism; Z87.01 Personal history of pneumonia (recurrent); Z87.19 Personal history of other diseases of the digestive system; Z98.42 Cataract extraction status, left eye; Z98.41 Cataract extraction status, right eye; Z90.710 Acquired absence of both cervix and uterus; Z96.651 Presence of right artificial knee joint; Z79.82 Long term (current) use of aspirin; W19.XXXA Unspecified fall, initial encounter
CPT/HCPCS: 36415; 70450; 72100; 72125; 80053; 81001; 85025; 85610; 85730; 87086; 87088; 96365; 99284; J0131

== ENCOUNTER 2022-03-17 09:58 | Outpatient (CLI) | payer MEDICARE, OTHER, SELFPAY ==
[2022-03-17 10:20] LABS: Appearance Urine Cloudy (Clear); Bilirubin Urine Negative (Negative); Blood Urine 2+ (Negative); Color Urine Yellow (Yellow); Glucose Urine UA Negative (Negative); Ketones Urine Negative (Negative); Leukocyte Esterase Ur 3+ LEU/UL (NEGATIVE); Nitrate Urine Negative (Negative); Protein Urine 2+ mg/dL (Negative); Specific Grav Ur >= 1.030 (1.001-1.035)
[2022-03-17 10:27] LABS: RBC Urine 21-50 /hpf (0-2); Squamous Epithelial Cell Urine Moderate /hpf (Few); WBC Clumps Urine Present /HPF; WBC Urine >75 /hpf (0-3)
[2022-03-17 10:28] LABS: Add Urine Microscopic? YES
== END 2022-03-17 09:59 | disposition home or self-care (01) ==
PROVIDERS: PCP Physician Assistant; Visit Provider Physician Assistant
DX: R30.0 Dysuria (principal)
CPT/HCPCS: 81001; 87077; 87086; 87186

== ENCOUNTER 2023-04-01 11:48 | Outpatient (CLI) | payer MEDICARE, OTHER, SELFPAY | END 2023-04-01 11:49 | disposition home or self-care (01) | LOC: ANHLAB 11:52 | PROVIDERS: PCP Internal Medicine; Visit Provider Physician Assistant | DX: R30.0 Dysuria (principal) | CPT/HCPCS: 87086 ==

== ENCOUNTER 2024-01-29 15:12 | Emergency (ER) | payer MEDICARE, OTHER, SELFPAY ==
[2024-01-29 15:13] VITALS: BP 180/86; PULSE 76; RESP 16; TEMP 36.4; O2SAT 99
[2024-01-29 16:58] VITALS: BP 186/82; PULSE 68; RESP 18; TEMP 36.8; O2SAT 98
--- NOTE | 2024-01-29 17:37 | ED.BACK ---
HPI - Back Pain/Injury General Chief Complaint: Back Pain/Injury Stated Complaint: back pain and spasms Time Seen by Provider: 01/29/24 17:04 Source: patient Mode of arrival: ambulatory Limitations: no limitations History of Present Illness HPI Narrative: This is a 83-year-old female who presents to the ED for chief complaint of back pain and back spasms this started this morning around 0 600. Patient reports that she has been moving and putting up a lot of [place] to core. States that she thinks she over did it and strained her back. Reports a spasm like pain throughout the right side of the low back. Denies any specific injury, trauma or fall. Denies lower extremity numbness or weakness. Denies saddle anesthesia, bowel or bladder dysfunction. Denies urinary symptoms, fevers, chills or abdominal pain. Denies nausea, vomiting. Related Data Home Medications Medication Instructions Recorded Confirmed aspirin 81 mg tablet,delayed 81 mg PO DAILY 03/01/19 08/26/23 release (Adult Low Dose Aspirin) multivitamin with minerals 1 tablet PO DAILY 03/01/19 08/26/23 (Hair,Skin and Nails tablet) indapamide 1.25 mg tablet 1.25 mg PO DAILY 04/08/19 08/26/23 bisacodyl 5 mg tablet 5 mg PO QHS 10/31/22 08/26/23 gabapentin 400 mg capsule 400 mg PO TID 10/31/22 08/26/23 mirtazapine 15 mg tablet 15 mg PO QHS 10/31/22 08/26/23 nitroglycerin 0.4 mg sublingual 0.4 mg sublingual Q5M PRN 10/31/22 08/26/23 tablet Allergies Allergy/AdvReac Type Severity Reaction Status Date / Time codeine Allergy Intermediate vision Verified 01/29/24 15:13 changes sulfamethoxazole Allergy Mild couldn't Verified 01/29/24 15:13 urinate, Back Pain topiramate Allergy Mild Can't Verified 01/29/24 15:13 urinate trimethoprim Allergy Mild couldn't Verified 01/29/24 15:13 urinate, back pain Review of Systems Review of Systems: All systems as dictated in [facility] Past Medical History Medical History (Updated 01/30/24 @ 00:01 by Background Daemon) Acute coryza Allergic rhinitis, unspecified Anemia Arthritis Back pain Back pain with right-sided radiculopathy Bradycardia CAD (coronary artery disease) Mid left anterior descending stent in 2016 at [place] Chronic headaches Cough Dementia Epigastric pain Essential (primary) hypertension Gastro-esophageal reflux disease without esophagitis GERD (gastroesophageal reflux disease) Heart attack Hemorrhoids Hx of colonic polyps Hypercholesteremia Hyperglycemia Hypertension Hypothyroidism Nausea Other fatigue Pneumonia Pure hypercholesterolemia Rectal polyp Sacral fracture, closed Screening for breast cancer Weight loss Surgical History Surgical History H/O bilateral cataract extraction History of hernia surgery History of hysterectomy History of lumpectomy X3 that were benign. 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 She desires to be a full code. She has 2 children. She is retired from working at a [employer] Smoking status: Never smoker Second hand tobacco smoke exposure: Yes Alcohol intake: never Substance use: never Substance use type: does not use Lack of Transportation: No Lack of Food: Never True Current Housing: I Have Housing Concerned About Future Housing: No Difficulty Paying Gas/Electric Bills: No Difficulty Paying for Meds: No Currently Unemployed: No Education: High School Diploma/GED Difficulty w/ Childcare or Family Care: No Living arrangements: with family Occupation/Education: retired Gender identity (if verbalized by the patient): Female Spiritual care concerns: No Agree to blood products: Yes Exam Narrative: GENERAL: Well-appearing, well-nourished, and in no acute distress. HEAD: Normocephalic, atraumatic. EYES: PERRLA and EOMI. ENT: Nares clear, no rhinorrhea or epistaxis. Mucous membranes moist. Oropharynx without tonsillar hypertrophy exudate or other lesions. NECK: Supple. No adenopathy or masses. CHEST: No respiratory distress. Clear to auscultation. No wheezes rales or rhonchi HEART: Regular rate and rhythm. No murmur heard. Normal peripheral pulses. ABDOMEN: Negative flank tenderness bilaterally. Soft, nontender, nondistended, normal active bowel sounds. MSK: Focal tenderness to the right paraspinal muscles in the lumbar region. Negative on the left. Ambulatory without assistance. SKIN: Warm, dry, no rash. NEURO: Alert and oriented x4. No focal deficits. PSYCH: Normal mood and affect. Course Vital Signs Vital signs: Vital Signs Temperature 97.5 F L 01/29/24 15:13 Pulse Rate 76 01/29/24 15:13 Respiratory Rate 16 01/29/24 15:13 Blood Pressure 180/86 H 01/29/24 15:13 Pulse Oximetry 99 01/29/24 15:13 Oxygen Delivery Room Air 01/29/24 15:13 Temperature 98.3 F 01/29/24 16:58 Pulse Rate 68 01/29/24 16:58 Respiratory Rate 18 01/29/24 16:58 Blood Pressure 186/82 H 01/29/24 16:58 Pulse Oximetry 98 01/29/24 16:58 Oxygen Delivery Room Air 01/29/24 15:13 MDM - Back Pain/Injury MDM Narrative Medical decision making narrative: This is a 83-year-old female who presents to the ED for chief complaint of back spasms beginning this morning.. Vitals Show elevated blood pressure but otherwise normal.. Exam shows Focal tenderness to the right paraspinal muscles. The flank is nontender. She is not exhibiting red flag back signs today. No evidence of acute abdomen on exam either. Patient was given cyclobenzaprine, hydrocodone and lidocaine patch. Urinalysis does show evidence of potential UTI so cephalexin prescription will be given. this not appear to be pyelonephritis as patient is afebrile, not vomiting and has no systemic symptoms. Rx for muscle relaxer given for back spasm. Patient will be discharged in stable condition. Supportive measures discussed and return precautions given. Patient is understanding and agreeable with plan for discharge with PCP follow-up. Lab Data Labs: Lab Results 01/29/24 Range/Units 18:15 Urine Color Yellow (Yellow) Urine Appearance Clear (Clear) Urine pH 5.5 (5.0-9.0) Ur Specific [place] 1.009 (1.001-1.035) Urine Protein Negative (Negative) mg/dL Urine Glucose (UA) Negative (Negative) mg/dL Urine Ketones Negative (Negative) mg/dL Ur Blood (Man) Negative (Negative) Urine Nitrate Negative (Negative) Urine Bilirubin Negative (Negative) Urine Urobilinogen 2.0 H (<2.0) mg/dL Leukocyte Esterase Rfl 3+ H (Negative) MANI/UL Urine RBC 0-2 (0-2) /hpf Urine WBC 21-50 H (0-3) /hpf Ur Squamous Epith Cells None seen (Few) /hpf Urine Bacteria None seen /hpf Urine Casts 0-2 Discharge Plan Discharge Clinical Impression: Back pain, Acute UTI Patient Disposition: Home, Self-Care Condition: Stable Instructions: Antibiotic Form, Urinary Tract Infection in Women (ED), Back Pain (ED) Additional Instructions: Exam today does show evidence of possible UTI. Please take antibiotics for this. Take muscle relaxer at nighttime for probable back spasm. If you have any new or worsening symptoms please return to the ER for further evaluation. Prescriptions: New cyclobenzaprine 10 mg tablet 5 mg PO HS PRN (Reason: muscle spasm) Qty: 20 0RF cephalexin 500 mg capsule 500 mg PO Q8H 7 Days Qty: 21 0RF No Action amlodipine 5 mg tablet 5 mg PO DAILY Qty: 90 1RF bisacodyl 5 mg tablet 5 mg PO QHS gabapentin 400 mg capsule 400 mg PO TID mirtazapine 15 mg tablet 15 mg PO QHS nitroglycerin 0.4 mg tablet, sublingual 0.4 mg sublingual Q5M PRN Rx Instructions: do not exceed 3 doses per episode clobetasol 0.05 % cream 1 applic topical DAILY Qty: 30 0RF Rx Instructions: Apply to forehead lesion aspirin [Adult Low Dose Aspirin] 81 mg tablet,delayed release (DR/EC) 81 mg PO DAILY multivitamin with minerals [Hair,Skin and Nails] Tablet 1 tablet PO DAILY indapamide 1.25 mg tablet 1.25 mg PO DAILY donepezil 10 mg tablet 10 mg PO QHS Qty: 90 3RF atorvastatin 80 mg tablet 80 mg PO DAILY Qty: 90 3RF levothyroxine 112 mcg tablet 112 mcg PO DAILY Qty: 90 1RF lisinopril 20 mg tablet See Rx Instructions .ROUTE .COMPLEX Qty: 180 1RF Dose Instruction: TAKE 2 TABLETS BY MOUTH DAILY Rx Instructions: TAKE 2 TABLETS BY MOUTH DAILY magnesium oxide 400 mg (241.3 mg magnesium) tablet 400 mg PO DAILY Qty: 90 1RF phenazopyridine [Pyridium] 200 mg tablet 200 mg PO TID Qty: 9 0RF Rx Instructions: Take after meals Follow-up/Referrals: Kiley,Kg Ann DO [Primary Care Provider] - Time of Disposition: 18:46
[2024-01-29] MEDS: LIDOCAINE 5% PATCH 1 PATCH TRANSDERM (18:12)
[2024-01-29] MEDS: HYDROcodone/acetaminophen (*CRX) 5-325 MG TABLET 1 TAB PO (18:12)
[2024-01-29] MEDS: CYCLOBENZAPRINE HCL 5 MG TABLET PO (18:19)
[2024-01-29 18:29] LABS: Add Urine Microscopic? YES; Appearance Urine Clear (Clear); Bacteria Urine None Seen /hpf; Bilirubin Urine Negative (Negative); Blood Urine Negative (Negative); Color Urine Yellow (Yellow); Glucose Urine UA Negative (Negative); Ketones Urine Negative (Negative); Leukocyte Esterase Ur 3+ LEU/UL (Negative); Nitrate Urine Negative (Negative); Non Pathogenic Casts 0-2; Protein Urine Negative (Negative); RBC Urine 0-2 /hpf (0-2); Specific Grav Ur 1.009 (1.001-1.035); Squamous Epithelial Cell Urine None Seen /hpf (Few); WBC Urine 21-50 /hpf (0-3); pH Urine 5.5 (5.0-9.0)
== END 2024-01-29 18:57 | disposition home or self-care (01) ==
PROVIDERS: Emergency Provider Physician Assistant; PCP Internal Medicine
DX: M54.9 Dorsalgia, unspecified (principal); N39.0 Urinary tract infection, site not specified; Z79.82 Long term (current) use of aspirin; I25.10 Atherosclerotic heart disease of native coronary artery without angina pectoris; F03.90 Unspecified dementia, unspecified severity, without behavioral disturbance, psychotic disturbance, mood disturbance, and anxiety; I10 Essential (primary) hypertension; K21.9 Gastro-esophageal reflux disease without esophagitis; E78.00 Pure hypercholesterolemia, unspecified; Z96.651 Presence of right artificial knee joint
CPT/HCPCS: 81001; 87086; 99283; A9270

== ENCOUNTER 2024-10-12 08:57 | Emergency (ER) | payer MEDICARE, OTHER, SELFPAY ==
--- OUTSIDE RECORDS SUMMARY | 2008-11-17 05:15 | XMS_ITS | Continuity of Care Document ---
Author Organization [facility] [address] [place] [address] Phone Care Team Providers Care Motor And Controls Tester Name Role Phone Piter Hernandez Unavailable Unavailable Procedures Procedure Date Eye Exam & Treatment No Script BF Plastic Sphcyl [place] To +/-4d .12-2d Vision Svcs Frames Purchases [...] Diagnoses Date Provider Providers Copied on Encounter [facility], [address] [place] [address] [address], [place], [place], [address], [place] tel:[phone] SEC Former[facility] named [facility] No Information 9 David Dumas. [address] , [address], [place], [address], [place]. tel:[phone] [facility], [address] [place] [address] [address], [place], [place], [address], [place] tel:[phone] SEC [facility] No Information 9 [facility] . [address], [address], [place], [place], [address], [place]. tel:[phone] Referring Provider: Rosy [employer]ance [employer] [address], [place], [address]. tel:[phone] [facility], [address] [place] [address] [address], [place], [place], [address], [place] tel:[phone] SEC [facility] No Information 8[address] 8 David Dumas. [facility] [address], [address], [place], [address], [place]. tel:[phone] [facility], [address] [place] [address] [address], [place], [place], [address], [place] tel:[phone] SEC [facility] No Information 3 8 David Dumas. [facility] [address], [address], [place], [place], [facility], [place]. tel:[phone] [facility], [address] [place] [address] [address], [place], [place], [address], [place] tel:[phone] [facility] No Information [address] 8 David Dumas. [facility] [address], [address], [place], [address], [place]. tel:[phone] Office/outpat ient Visit, Est [facility], [address] [place] [address] [address], [place], [place], [address], [place] tel:[phone] SEC [facility] No Information 200 8 David Dumas. [facility] [address], [address], [place], [address], [place]. tel:[phone] Referring Provider: Rosy [employer] [address], [place], [place], [facility]. tel:[phone] [facility], [address], [place], [place], [address], [place] tel:[phone] [facility] No Information 200 7 David Dumas. [address], [address], [place], [address], [place]. tel:[phone] Family History Family Member Type Diagnosis Age At Onset No Information Payers Payer name Insurance type Covered green party ID Authoriza tion(s) [place] [id number] Social History Type Description Quantity Date Captured [...]
--- OUTSIDE RECORDS SUMMARY | 2008-11-17 05:15 | XMS_ITS | Continuity of Care Document ---
Author Organization [facility] Address [address] [place] [address] Phone Care Team Providers Care Studio Control Operator Name Role Phone Piter Hernandez Unavailable Unavailable Procedures Procedure Date Eye Exam & Treatment No Script BF Plastic Sphcyl [place] To +/-4d .12-2d Vision Svcs Frames Purchases [...] Diagnoses Date Provider Providers Copied on Encounter [facility], [address] [place] [address] [address], [place], [place], [address], [place] tel:[phone] SEC [facility] No Information 9 David Dumas. [address] [facility] [place] , [address], [place], [address], [place]. tel:[phone] [facility], [address] [place] [address] [address], [place], [place], [address], [place] tel:[phone] SEC [facility] No Information 9 [facility] . [address], [address], [place], [place], [address], [place]. tel:[phone] Referring Provider: Rosy [employer]ance [employer] [address], [place], [address]. tel:[phone] [facility], [address] [place] [address] [address], [place], [place], [address], [place] tel:[phone] SEC [facility] No Information 8[address] 8 David Dumas. [facility] [address], [address], [place], [address], [place]. tel:[phone] [facility], [address] [place] [address] [address], [place], [place], [address], [place] tel:[phone] [facility] No Information 3 8 David Dumas. Rosy [facility] [address], [address], [place], [place], [facility], [place]. tel:[phone] [facility], [address] [place] [address] [address], [place], [place], [address], [place] tel:[phone] [facility] No Information 2[address] 8 David Dumas. [facility] [address], [address], [place], [address], [place]. tel:[phone] Office/outpat ient Visit, Est [facility], [address] [place] [address] [address], [place], [place], [address], [place] tel:[phone] [facility] No Information 200 8 David Dumas. [facility] [address], [address], [place], [address], [place]. tel:[phone] Referring Provider: Rosy Nance [employer] [address], [place], [place], [facility]. tel:[phone] [facility], [address], [place], [place], [address], [place] tel:[phone] [facility] No Information 200 7 David Dumas. [address], [address], [place], [address], [place]. tel:[phone] Family History Family Member Type Diagnosis Age At Onset No Information Payers Payer name Insurance type Covered constitution party ID Authoriza tion(s) [place] [id number] Social History Type Description Quantity Date Captured [...]
[2024-10-12] VITALS (8 sets, daily range): BP systolic 155–169; BP diastolic 75–93; PULSE 46–71; RESP 11–18; TEMP 36.4; O2SAT 96–99
--- NOTE | ~2024-10-12 | CT_ITS ---
EXAMINATION: CT abdomen pelvis w con DATE: 10/12/2024 11:50 INDICATION: Hematuria TECHNIQUE: Computed tomography (CT) of the abdomen and pelvis was performed with intravenous contrast. The dose-length product was 232.42 mGy-cm. COMPARISON: 04/27/2017 FINDINGS: There are a few small reticular, groundglass and bandlike opacities in the lower lungs. Fatty liver. Gallbladder, spleen, adrenal glands are unremarkable. Stable 2 cm left renal cyst. Kidneys otherwise unremarkable. Abdominal aorta is not aneurysmal but is partially calcified. There is a new 1.4 cm calcified mass in the pancreatic head with new pancreatic ductal dilation and pancreatic atrophy. No enlarged lymph nodes in the abdomen. Asymmetric thickening of the lateral and anterior yan of the bladder. No free fluid in the pelvis. No enlarged lymph nodes in the pelvis identified. Moderate amount of stool. No colitis. No appendicitis. Multilevel degenerative change in the spine. 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 Possible prior surgical change in the facet joints in the lumbar spine similar to the study from 2018. IMPRESSION: 1. There is a new 1.4 cm calcified mass in the pancreatic head with new pancreatic ductal dilation and pancreatic atrophy. A pancreatic mass CT or MRI is recommended for further assessment. 2. Asymmetric thickening of the lateral and anterior yan of the bladder. The findings are nonspecific. Cystitis is possible. An underlying mass is possible. Consider direct visualization. 3. No CT evidence for renal, ureteral or bladder calculi. Reviewed, dictated and finalized at location A. IMPRESSION: 1. There is a new 1.4 cm calcified mass in the pancreatic head with new pancrea tic ductal dilation and pancreatic atrophy. A pancreatic mass CT or MRI is ailin mmended for further assessment. 2. Asymmetric thickening of the lateral and anterior yan of the bladder. The findings are nonspecific. Cystitis is possible. An underlying mass is possible. Consider direct visualization. 3. No CT evidence for renal, ureteral or bladder calculi.
--- OUTSIDE RECORDS SUMMARY | 2024-10-12 09:04 | XMS_ITS ---
Author Name Auto Generated, Auto Generated Organization [employer] [facility] ices Address [address] [place] [address] Phone [phone] Care Team Providers Care Mechanical Car Checker Name Role Phone Jose Green [phone] Functional Status No Results Mental Status No Results Allergies and Intolerances Name Onset Date Reaction Severity codeine (Allergy) ThuMar 11 21:55:00 2016 Medications Medication Directions Start Date End Date TUBErsol 5 tub. unit/0.1 mL intradermal injection solution Read Results VIAL (ML) Other 1 Time Weekly for 2 Weeks Read results 72 hours after 1st and 2nd 1 week apart. If positive do chest x-ray to rule out active disease. ThuMar 15 13:00:00 2016Mar 17 01:00:00 2016 Tamiflu 75 mg capsule 75mg CAPSULE Oral 1 Time Daily for 10 Days ThuMar 14 21:00:00 2016Mar 17 01:00:00 2016 Milk of Magnesia 400 mg/5 mL oral suspension 30 cc SUSPENSION, ORAL (FINAL DOSE FORM) Oral PRN 1 Time Daily ThuMar 13 07:00:00 2016Mar 17 01:00:00 2016 TUBErsol 5 tub. unit/0.1 mL intradermal injection solution 0.1 ml VIAL (ML) Intradermal 1 Time Weekly for 2 Weeks (PPD) 1st injection upon admission. Read after 72 hours and give 2nd injection 1 week after the 1st if result is negative. If positive result, proceed with chest x-ray to rule out active disease. ThuMar 12 01:00:00 2016Mar 17 01:00:00 2016 cyclobenzaprine 10 mg tablet 5mg TABLET Oral 3 Times Daily Dx: Muscle spasms ThuMar 11 21:00:00 2016Mar 17 01:00:00 2016 docusate sodium 100 mg capsule 100mg CAPSULE Oral 2 Times Daily Dx: Constipation ThuMar 11 21:00:00 EST 2016Mar 17 01:00:00 EST 2016 HYDROcodone 5 mg-acetaminophen 325 mg tablet 5-325 mg 1 tab TABLET Oral PRN Every 4 Hours Dx: Pain ThuMar 11:00:00 EST 2016Mar 17:00:00 EST 2016 HYDROcodone 5 mg-acetaminophen 325 mg tablet 2 tabs TABLET Oral PRN Every 4 Hours Dx: PainMay have 1-2 tabs. Two separate orders. ThuMar 11:00:00 EST 2016Mar 17:00:00 EST 2016 aspirin 81 mg chewable tablet 81mg TABLET, CHEWABLE Oral 1 Time Daily Dx: Heart health ThuMar 11 21:00:00 EST 2016Mar 17 01:00:00 EST 2016 atorvastatin 80 mg tablet 80mg TABLET Or al 1 Time Daily Dx:Hypercholesterolemia ThuMar 11:00:00 EST 2016Mar 17 01:00:00 EST 2016 Vitamin B-12 500 mcg tablet 500mcg TABLE T Oral 1 Time Daily Dx: Supplement ThuMar 11:00:00 EST 2016Mar 17 01:00:00 EST 2017 clopidogrel 75 mg tablet 75mg TABLET Ora l 1 Time Daily Dx: Anticoagulant ThuMar 11 21:00:00 EST 2016Mar 17 01:00:00 EST 2017 donepezil 10 mg tablet 10mg TABLET Oral 1 Time Daily Dx: Dementia ThuMar 11:00:00 EST 2016Mar 17:00:00 EST 2016 levothyroxine 100 mcg tablet 100mcg TABLET Oral 1 Time Daily Dx: Hypothyroidism ThuMar 11 21:00:00 EST 2016Mar 17 01:00:00 EST 2017 esomeprazole magnesium 40 mg capsule,delayed release 40mg CAPSULE,DELAYED RELEASE (ENTERIC COATED) Oral 1 Time Daily Dx: GERD ThuMar 11 21:00:00 EST 2016Mar 17 01:00:00 EST 2017 nitroglycerin 0.4 mg sublingual tablet 0.4mg TABLET, SUBLINGUAL Sublingual PRN Dx: Chest pain ThuMar 11 21:00:00 EST 2016Mar 17 01:00:00 EST 2016 potassium 99 mg tablet 99mg TABLET Oral 1 Time Daily Dx: Hypokalemia ThuMar 11 21:00:00 EST 2016Mar 17 01:00:00 EST 2016 cholecalciferol (vitamin D3) 1,000 unit tablet 1,000units TABLET Oral 1 Time Daily Dx: Supplement ThuMar 11 21:00:00 2016Mar 17 01:00:00 2016 oxybutynin chloride ER 5 mg tablet,extended release 24 hr 5mg TABLET, EXTENDED RELEASE 24 HR Oral 2 Times Daily Dx: Urinary Retention ThuMar 11 21:00:00 2016Mar 17 01:00:00 2016 Problems Active Concerns * Fusion of spine, lumbar region* Code: * Start Date: ThuMar 11 00:00:00 2016 * End Date: * Text: * Arthrodesis status* Code: * Start Date: ThuMar 11 00:00:00 2016 * End Date: * Text: * Hyperlipidemia, unspecified* Code: * Start Date: ThuMar 11 00:00:00 2016 * End Date: * Text: * Overactive bladder* Code: * Start Date: ThuMar 11:00:00 2016 * End Date: * Text: * Gastro-esophageal reflux disease without esophagitis* Code: * Start Date: ThuMar 11 00:00:00 2016 * End Date: * Text: * Hypothyroidism, unspecified* Code: * Start Date: ThuMar 11 00:00:00 2016 * End Date: * Text: * Alzheimer's disease, unspecified* Code: * Start Date: ThuMar 11 00:00:00 2016 * End Date: * Text: * Dementia in other diseases classified elsewhere, unspecified severity, without behavioral disturbance, psychotic disturbance, mood disturbance, and anxiety* Code: * Start Date: ThuMar 11 00:00:00 2016 * End Date: * Text: * Vitamin D deficiency, unspecified* Code: * Start Date: ThuMar 11 00:00:00 2016 * End Date: * Text: * Vitamin B deficiency, unspecified* Code: * Start Date: ThuMar 11 00:00:00 2016 * End Date: * Text: * Atherosclerotic heart disease of [place] coronary artery without angina pectoris* Code: * Start Date: ThuMar 11 00:00:00 2016 * End Date: * Text: * Slow transit constipation* Code: * Start Date: ThuMar 11 00:00:00 2016 * End Date: * Text: Reason for Referral Past Medical History
--- OUTSIDE RECORDS SUMMARY | 2024-10-12 09:04 | XMS_ITS ---
Author Name Auto Generated, Auto Generated Organization [employer] [facility] ices Address [address] [place] [address] Phone [phone] Care Team Providers Care Manager Floral Name Role Phone Jose Green Functional Status No Results Mental Status No [...] * Text: * Atherosclerotic heart disease of [place] coronary artery without angina pectoris* Code: * Start Date: ThuMar 11 00:00:00 2016 * End Date: * Text: * Slow transit constipation* Code: * Start Date: ThuMar 11 00:00:00 2016 * End Date: * Text: Reason for Referral Past Medical History
--- OUTSIDE RECORDS SUMMARY | 2024-10-12 09:05 | XMS_ITS | Encounter Summary ---
Author Organization [facility] Address [address] [place] [address] Phone Care Team Providers Care Gauge Inspector Name Role Phone Kg Cao MD Primary Care Provider [phone] Dilma Mccray RN Unavailable Unavailab Simon Jesus Primary Care Provider Napoleon Ellison DO Unavailable Napoleon Ellison DO Primary Care Provider [phone] Encounter Details Date Type Department Care Team (Late st Contact Info) Description 11/25/2017 Telephone [facility] Cardiology [address] 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 Gender Identity Not on file Sexual Orientation Not on file documented as of this encounter Plan of Treatment Not on file documented as of this encounter Visit Diagnoses Not on filedocumented in this encounter Care Teams Gauge Inspector Relationship Specialty Start Date End Date Kg Cao MD [address] [facility] [address] [place] [address] PCP - General 10/28/16 10/08/21 Simon Hunter PA [address] [facility] [address] [place], [place] [id number] PCP - General Physician Bisque Tile Burner 10/09/21 06/01/24 Napoleon Ellison DO [address] [facility] [address] [place] [address] PCP - General Internal Medicine 06/02/24 Dilma Mccray, RN Registered Nurse 11/09/18 Napoleon Ellison DO [address] [facility] [address] [place] [address] Referring Physician Internal Medicine 06/02/24 06/02/24 documented as of this encounter
--- OUTSIDE RECORDS SUMMARY | 2024-10-12 09:05 | XMS_ITS | Encounter Summary ---
Author Organization [facility] Healthcare Address [address] [place] [address] Care Team Providers Care Insulation Board Head Saw Operator Name Role Phone Kg Cao MD Primary Care Provider [phone] Dilma Mccray RN Unavailable Unavailab Simon Jesus Primary Care Provider Napoleon Ellison DO Unavailable Napoleon Ellison DO Primary Care Provider [phone] Encounter Details Date Type Department Care Team (Late st Contact Info) Description 11/03/2019 Telephone [facility] Radiology [address] [place], [place] [id number] Anant Ely MD [address] [facility] [address] [place], [place] [id number] Social History Tobacco Use Types Packs/Day Years Used Date Smoking Tobacco: Never Smokeless Tobacco: Never Alcohol Use Standard Drinks/Week Comments Defer 0 (1 standard drink = 0.6 oz pur e alcohol) Comments Unknown Sex and Gender Information Value Date Recorded Sex Assigned at Not on file Legal Sex Female 1:24 AM PRESCHOOL PROGRAM DIRECTOR Gender Identity Not on file Sexual Orientation Not on file documented as of this encounter Plan of Treatment Not on file documented as of this encounter Visit Diagnoses Not on filedocumented in this encounter Care Teams Insulation Board Head Saw Operator Relationship Specialty Start Date End Date Kg Cao MD [address] [address] [place] [address] PCP - General 10/28/16 10/08/21 Simon Hunter PA [address] [facility] [address] [place] [address] PCP - General Physician Online Content Developer 10/09/21 06/01/24 Napoleon Ellison DO [address] [facility] [address] [place] [address] PCP - General Internal Medicine 06/02/24 Dilma Mccray, RN Registered Nurse 11/09/18 Napoleon Ellison DO [address] [facility] [address] [place] [address] Referring Physician Internal Medicine 06/02/24 06/02/24 documented as of this encounter
--- OUTSIDE RECORDS SUMMARY | 2024-10-12 09:05 | XMS_ITS | Encounter Summary ---
Author Organization [facility] Healthcare Address [address] [place] [address] Care Team Providers Care Clerical Adviser Name Role Phone Kg Cao MD Primary Care Provider [phone] Dilma Mccray RN Unavailable Unavailab le Simon Hunter Primary Care Provider Napoleon Ellison DO Unavailable Napoleon Ellison DO Primary Care Provider [phone] Encounter Details Date Type Department Care Team (Late st Contact Info) Description 10/13/2019 Telephone [facility] [address] [place] [address] Laura Potts, RT Social History Tobacco Use Types Packs/Day Years Used Date Smoking Tobacco: Never Smokeless Tobacco: Never Comments Unknown Sex and Gender Information Value Date Recorded Sex Assigned at Not on file Legal Sex Female 1:24 AM ANATOMY PROFESSOR Gender Identity Not on file Sexual Orientation Not on file documented as of this encounter Plan of Treatment Not on file documented as of this encounter Visit Diagnoses Not on filedocumented in this encounter Care Teams Clerical Adviser Relationship Specialty Start Date End Date Kg Cao MD [address] [facility] [address] [place], [place] [id number] PCP - General 10/28/16 10/08/21 Simon Hunter PA [address] [place] [address] PCP - General Physician Associate Director Financial Aid 10/09/21 06/01/24 Napoleon Ellison DO [address] [address] [place] [address] PCP - General Internal Medicine 06/02/24 Dilma Mccray, RN Registered Nurse 11/09/18 Napoleon Ellison DO [address] [place] [address] Referring Physician Internal Medicine 06/02/24 06/02/24 documented as of this encounter
--- OUTSIDE RECORDS SUMMARY | 2024-10-12 09:05 | XMS_ITS | Encounter Summary ---
Author Organization [facility] Address [address] [place] [address] Phone Care Team Providers Care Employment Consultant Name Role Phone Mccray, Dilma Ann RN Unavailable Unavailab le Simon Hunter Primary Care Provider Napoleon Ellison DO Unavailable Napoleon Ellison DO Primary Care Provider [phone] Encounter Details Date Type Department Care Team (Late st Contact Info) Description 03/16/2023 Telephone [facility] Medicine Cardiology [address] [facility] Advanced [facility] 8th [place] [address] [place] [address] Diane Renee Social History Tobacco Use Types Packs/Day Years Used Date Smoking Tobacco: Never Smokeless Tobacco: Never Alcohol Use Standard Drinks/Week Comments Defer 0 (1 standard drink = 0.6 oz pur e alcohol) Comments Unknown Sex and Gender Information Value Date Recorded Sex Assigned at Not on file Legal Sex Female 1:24 AM BIRD TENDER Gender Identity Not on file Sexual Orientation Not on file 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, 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 file No t on file documented as of this encounter Plan of Treatment Not on file documented as of this encounter Visit Diagnoses Not on filedocumented in this encounter Care Teams Employment Consultant Relationship Specialty Start Date End Date Simon Hunter PA [address] [place] [address] PCP - General Physician Eclectic Doctor 10/09/21 06/01/24 Napoleon Ellison DO [address] [facility] [address] [place] [address] PCP - General Internal Medicine 06/02/24 Dilma Mccray, RN Registered Nurse 11/09/18 Napoleon Ellison DO [address] [facility] [address] [place] [address] Referring Physician Internal Medicine 06/02/24 06/02/24 documented as of this encounter
--- OUTSIDE RECORDS SUMMARY | 2024-10-12 09:05 | XMS_ITS | Clinical Summary ---
Author Organization [facility] Address [address] [facility] [place] [address] Care Team Providers Care Rail Washer Name Role Phone Elodia Otto MD Unavailable [phone] Kg Cao DO Primary Care Provider [phone] Source Comments [facility],non-owned Affiliates and Associated Physician Practices is amultiple site organization consisting of ambulatory clinics and hospital sitesin [place], [place], [place] and [place]. This disclosure is being madepursuant to the Care Everywhere program and may not contain all information available regarding this patient. Last updated 17.[facility] [employer] Allergies Active Allergy Reactions Criticality Noted Date Comments Codeine 11/09/2012 Medications * Be aware that medications may not be up to date on this document. Alwaysverify current medications with the patient. tolterodine ER 24hr (DETROL LA) 4 MG capsule Take 4 mg by mouth once daily. Active esomeprazole (NEXIUM) 40 MG capsule Take 40 mg by mouth daily before breakfast. Active amLODIPine (NORVASC) 5 MG tablet Take 5 mg by mouth once daily. Active aspirin 81 MG tablet Take 81 mg by mouth once daily. Active metoprolol succinate XL 24hr (TOPROL XL) 25 MG tablet Take 25 mg by mouth once daily. Active diclofenac sodium EC (VOLTAREN) 75 MG tablet 75 mg 01/16/2015 Active ibuprofen (MOTRIN) 800 MG tablet 800 mg 03/09/2015 Active isosorbide mononitrate CR 24hr (IMDUR) 60 MG tablet 60 mg 02/21/2015 Active oxybutynin CR 24hr (DITROPAN-XL) 5 MG tablet 5 mg 12/15/2014 Active Potassium 99 MG tablet Take 99 mg by mouth once daily Active Cyanocobalamin (B-12) 500 MCG Activ e Cholecalciferol (D3 ADULT PO) Active indapamide (LOZOL) 1.25 MG tablet Take 1 tablet by mouth once daily 11/23/2017 Active levothyroxine (SYNTHROID) 88 MCG tablet Take 1 tablet by mouth once daily 11/04/2017 Active lisinopril (PRINIVIL; ZESTRIL) 20 MG tablet Take 1 tablet by mouth once daily 10/28/2017 Active atorvastatin (LIPITOR) 80 MG tablet Take 1 tablet by mouth once daily 10/28/2017 Active donepezil (ARICEPT) 10 MG tablet Take 1 tablet by mouth once daily 09/28/2017 Active Active Problems Problem Noted Date Diagnosed Date Pain in joint, shoulder region 11/09/2012 Social History Tobacco Use Types Packs/Day Years Used Date Smoking Tobacco: Never Smokeless Tobacco: Never Alcohol Use Standard Drinks/Week Comments No 0 (1 standard drink = 0.6 oz pur e alcohol) Comments Unknown Sex and Gender Information Value Date Recorded Sex Assigned at Not on file Legal Sex Female 11:32 AM TURNER OFF Gender Identity Not on file Sexual Orientation Not on file Last Filed Vital Signs Vital Sign Reading Time Taken Comments Blood Pressure 201/96 11/25/2017 11:27 AM CDT Pulse 54 03/26/2016 8:35 AM TURNER OFF Temperature 37.1 C (98.8 F) 03/11/2016 3:49 PM TURNER OFF Respiratory Rate 16 03/11/2016 3:49 PM TURNER OFF Oxygen Saturation 98% 03/11/2016 3:49 PM TURNER OFF Inhaled Oxygen Concentration - - Weight 61.2 kg (135 lb) 11/25/2017 11:27 AM CDT Height 149.9 cm (4' 11) 11/25/2017 11:27 AM CDT Body Mass Index 27.27 11/25/2017 11:27 AM CDT Plan of Treatment Health Maintenance Due Date Last Done Comments BONE DENSITY TESTING 1940 DTAP/TDAP/TD VACCINES (1 - Tdap) 1959 PNEUMOCOCCAL VACCINE 50+ (1 of 1 - PCV) 1990 ZOSTER VACCINE (1 of 2) 1990 Respiratory Syncytial Virus (RSV) Vaccine Pt: or over 60 yrs (1 - 1-dose 75+ series) 2015 COVID-19 VACCINE (2023-2 5 season) 2023 DEPRESSION SCREENING 02/24/2024 INFLUENZA VACCINE (#1) 2024 HEPATITIS B VACCINE Aged Out No longe r eligible based on patient's age to complete this topic HIB VACCINE Aged Out No longer eligi ble based on patient's age to complete this topic HPV VACCINE Aged Out No longer eligi ble based on patient's age to complete this topic MENINGOCOCCAL (Group B) VACC INE SHARED DECISION-MAKING Aged Out No longer eligibl e based on patient's age to complete this topic MENINGOCOCCAL GROUPS A/C/Y/W VACCINE Aged Out No longer eligible b ased on patient's age to complete this topic Insurance MEDICARE COMMERCIAL GENERIC COMMERCIAL GENERIC Care Teams Rail Washer Relationship Specialty Start Date End Date Kg Cao DO [address] [facility] [address] [place] [address] PCP - General Internal Medicine 11/09/12 Elodia Otto MD [address] [place] [address] Orthopedic Surgery 11/09/12
--- OUTSIDE RECORDS SUMMARY | 2024-10-12 09:05 | XMS_ITS | Patient Health Record ---
Author Organization [facility] Address [address] [place], [place] [address] Care Team Providers Care Picture Copyist Name Role Phone KRUPA Graf Unavailable [phone] Kg Cao Unavailable Unavailable Reason For Referral No Information Medications Medication SIG (Take, Route, Frequency, Duration) Notes Start Date End Date Status cholecalciferol 0.1 MG Oral Capsule ORAL cholecalciferol 0.1 MG Oral CapsuleOriginal Medicationcholecalciferol 0.1 MG Oral Capsule *Reorder from [employer] for eRx and Interaction Alerts* 5 Active aspirin 81 MG Delayed Release Oral Tablet ORAL aspirin 81 MG Delayed Releas e Oral TabletOriginal Medicationaspirin 81 MG Delayed Release Oral Tablet *Reorder from [facility] for eRx and Interaction Alerts* 5 Active Potassium Gluconate 2.5 MEQ Oral Tablet ORAL potassium gluconate 2.5 MEQ Oral TabletOriginal Medicationpotassium gluconate 2.5 MEQ Oral Tablet *Reorder from [facility] for eRx and Interaction Alerts* 5 Active Plan Of Treatment No Information Insurance Providers Payer Name Payer Address Payer Phone Subscriber Number Group Number Insured Name Patient Relationship to Insured Coverage Start Date Coverage End Date Medicare Part B [place] [address] [place] [address] [id number] ASHLEY CASAREZ Self - patient is the insured [employer] [address] [place], [place] [id number] ASHLEY CASAREZ Self - patient is the insured
--- OUTSIDE RECORDS SUMMARY | 2024-10-12 09:05 | XMS_ITS | Encounter Summary ---
Author Organization [facility] Address [address] [place] [address] Care Team Providers Care Emt B Name Role Phone Kg Cao MD Primary Care Provider [phone] Dilma Mccray RN Unavailable Unavailab Simon Jesus Primary Care Provider Napoleon Ellison DO Unavailable Napoleon Ellison DO Primary Care Provider [phone] Encounter Details Date Type Department Care Team (Late st Contact Info) Description 11/09/[address] 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 file No t on file documented as of this encounter Plan of Treatment Not on file documented as of this encounter Visit Diagnoses Not on filedocumented in this encounter Care Teams Emt B Relationship Specialty Start Date End Date Kg Cao MD [address] [place] [address] PCP - General 10/28/16 10/08/21 Simon Hunter PA [address] [place] [address] PCP - General Physician Marine Engineering Professor 10/09/21 06/01/24 Napoleon Ellison DO [address] [place] [address] PCP - General Internal Medicine 06/02/24 Dilma Mccray, RN Registered Nurse 11/09/18 Napoleon Ellison DO [address] [place] [address] Referring Physician Internal Medicine 06/02/24 06/02/24 documented as of this encounter
--- OUTSIDE RECORDS SUMMARY | 2024-10-12 09:05 | XMS_ITS | Encounter Summary ---
Author Organization [facility] Address [address] [place] [address] Phone Care Team Providers Care Steel Finisher Name Role Phone Mccray, Dilma Ann RN Unavailable Unavailab le Simon Hunter Primary Care Provider Napoleon Ellison DO Unavailable Napoleon Ellison DO Primary Care Provider [phone] Encounter Details Date Type Department Care Team (Late st Contact Info) Description 11/29/2021 Documentation [facility] [address] [place] [address] 6th Floor [address] [place] [address] Caryn Hannah RN Social History Tobacco Use Types Packs/Day Years Used Date Smoking Tobacco: Never Smokeless Tobacco: Never Alcohol Use Standard Drinks/Week Comments Defer 0 (1 standard drink = 0.6 oz pur e alcohol) Comments Unknown Sex and Gender Information Value Date Recorded Sex Assigned at Not on file Legal Sex Female 1:24 AM SALES OFFICE COORDINATOR Gender Identity Not on file Sexual Orientation Not on file 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, 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 file No t on file documented as of this encounter Plan of Treatment Not on file documented as of this encounter Visit Diagnoses Not on filedocumented in this encounter Care Teams Steel Finisher Relationship Specialty Start Date End Date Simon Hunter PA [address] [place] [address] PCP - General Physician Member [employer] 10/09/21 06/01/24 Napoleon Ellison DO [address] [place] [address] PCP - General Internal Medicine 06/02/24 Dilma Mccray, RN Registered Nurse 11/09/18 Napoleon Ellison DO [address] [facility] [address] [place] [address] Referring Physician Internal Medicine 06/02/24 06/02/24 documented as of this encounter
--- OUTSIDE RECORDS SUMMARY | 2024-10-12 09:05 | XMS_ITS | Clinical Summary ---
Author Organization [facility] Address [address] [place] [address] [place] [address] Care Team Providers Care Director Of Enterprise Applications Name Role Phone Mccray, Dilma Ann RN Unavailable Unavailab Napoleon Randolph DO Primary Care Provider [phone] Allergies Active Allergy Reactions Criticality Noted Date Comments Codeine Mental status change s,Other (See comments) Medium 12/23/2013 Valsartan Mental status changes Low 03/20/2009 Medications donepezil (ARICEPT) 10 mg tablet Take 1 tablet (10 mg total) by mouth nightly 8 Active DULCOLAX, BISACODYL, ORAL as needed Acti ve ibuprofen (ADVIL,MOTRIN) 800 mg tablet 1 tablet (800 mg total) as needed 6 Active cyanocobalamin (Vitamin B-12) 500 mcg tabletIndication s:Prevention of Vitamin B12 Deficiency daily Active aspirin 81 mg tablet Take 1 tablet (81 mg total) by mouth daily Active tiZANidine (ZANAFLEX) 4 mg tablet TAKE ONE TABLET 3 TIMES DAILY NEEDED FOR MUSCLE SPASTICITY 0 Active amLODIPine (NORVASC) 5 mg tablet TAKE 1 TABLET(5 MG) BY MOUTH DAILY 90 tablet 3 3 Active atorvastatin (LIPITOR) 80 mg tablet 3 Active levothyroxine (SYNTHROID) 112 mcg tablet 3 Active gabapentin (NEURONTIN) 400 mg capsuleIndicatio ns:Cervicogenic headache Take 1 capsule (400 mg total) by mouth 3 (three) times a day 270 capsule 3 4 Active isosorbide mononitrate ER (IMDUR) 30 mg 24 hr tablet Take 1 tablet (30 mg total) by mouth daily 30 tablet 11 4 Active nitroglycerin (Nitrostat) 0.[address] 1 tablet (0.4 mg total) under the tongue as needed for chest pain 25 tablet 3 5 Active lisinopriL (PRINIVIL,ZESTRI L) 20 mg tablet Take 1 tablet (20 mg total) by mouth daily 90 tablet 3 5 Active escitalopram (LEXAPRO) 5 mg tabletIndication s:Late onset Alzheimer's dementia without behavioral disturbance Take 1 tablet (5 mg total) by mouth daily 30 tablet 11 5 Active Active Problems Problem Noted Date Diagnosed Date Dyspnea on exertion 07/29/2024 Episodic tension-type headache, not intractable 05/12/2024 Late onset Alzheimer's demen tia without behavioral disturbance 11/02/2020 Memory loss or impairment 11/02/2020 Chronic daily headache 12/14/2019 Dizziness and giddiness 12/14/2019 Cervicogenic headache 09/20/2019 Syncope 09/20/2019 Cervicalgia 07/26/2018 Cervical radiculopathy 07/26/2018 Cervical spinal stenosis 07/26/2018 Spondylosis of cervical joint without myelopathy 07/26/2018 Musculoskeletal disorder and symptoms referable to neck 07/26/2018 Bilateral occipital neuralgia 07/26/2018 Chest pain, atypical 07/27/2017 Overview (07/27/2017): Atypical for CAD. Nonexertional. Continue to monitor. Assessment & Plan (07/27/2017 2:40 PM CDT): She continues to have occasional atypical chest symptoms which are nonexertional and last only a few seconds. Continue current therapy for coronary artery disease. Arteriosclerotic heart disease (ASHD) 07/23/2012 Hyperlipidemia 01/10/2011 Hypertension 05/13/2010 Assessment & Plan (07/27/2017 2:39 PM CDT): Blood pressure is elevated in the office today. I asked her to monitor blood pressure twice daily over the next 2 weeks and then call with the readings. Continue current medications for now. Resolved Problems Problem Noted Date Diagnosed Date Resolved Date CSF leak 10/26/2019 12/14/2019 Encounters Date Type Department Care Team Description 08/05/2024 Telephone [facility] [address] [place] [address] Caryn Hannah RN 08/05/[address] [facility] Cardiology [facility] [facility] 8th [place] [address] [place] [address] Niles Frye MD Scheduling Testing/Treatment 08/05/2024 Results Follow-Up [facility] Cardiology [facility] 8th [place] [address] [place] [address] Niles Frye MD Pulmonary Function Test - 08/04/2024 Telephone [facility] [address] [place] [address] Caryn Hannah RN 07/29/2024 11:50 AM CDT - 07/29/2024 11:59 PM CDT Hospital Encounter [facility] Pulmonary 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 Cardiology [address] [facility] Medical Office [address] [place] [address] Niles Frye MD lab reminder 07/13/2024 Telephone [facility] [address] [place] [address] [address] [place] [address] Caryn Hannah, RN 07/12/2024 Telephone [facility] [address] [place] [address] Caryn Hannah RN from Last 3 Months Surgical History Surgery Date Site/Laterality Comments MI TOTAL ABDOMINAL HYSTERECT W/WO RMVL TUBE OVARY Hysterectomy - (Added by [facility]) MI ARTHROPLASTY KNEE TIBIAL PLATEAU Knee Replacement - Right (Added by [facility]) BACK SURGERY TONSILECTOMY, ADENOIDECTOMY, BILATERAL MYRINGOTOMY AND TUBES only tonsilectomy Medical History Medical History Date Comments Personal history of other di seases of the circulatory system History of hypertension - (A dded by Done.) Personal history of other en docrine, nutritional and metabolic disease History of hyperlipi demia - (Added by [facility]) Syncope Cataract Heart attack (HCC) HTN (hypertension) Thyroid condition Alzheimer disease Family History Medical History Relation Name Comments Stroke Brother 1 Stroke Syndrome - Father - at age 83, Brother - stroke at age 48. (Added by Done.) Aortic aneurysm Brother 2 Family histo ry of aortic aneurysm - (Added by Done.) Heart attack Brother 3 Family history of heart attack - (Added by Done.) Breast cancer Brother 4 Adenocarcinoma of breast - (Added by Done.) Lung cancer Brother 5 Family history of lung cancer - (Added by [facility]) Heart attack Brother 6 Family history of heart attack - (Added by [facility]) Cancer Brother 7 Family history of cancer - (Added by Done.) Stroke Brother 8 Family history of stroke - (Added by Done.) Alzheimer's disease Father Family h istory of Alzheimer's disease - (Added by Done.) Stroke Father Stroke Syndrome - Father - at age 83, Brother - stroke at age 48. (Added by Done.)/Family history of stroke - (Added by Done.) Heart disease Mother Heart Disease - Mother - at age 43 (Added by [facility]) Alzheimer's disease Sister Breast cancer Sister Adenocarcinoma of breast - (Added by Done.) Relation Name Status Comments Brother 1 Brother 2 Brother 3 Brother 4 Brother 5 Brother 6 Brother 7 Brother 8 Father Mother Sister Social History Tobacco Use Types Packs/Day Years Used Date Smoking Tobacco: Never Passive Smoke Exposure: Current Smokeless Tobacco: Never Tobacco Cessation:Counseling Given: Not Answered Alcohol Use Standard Drinks/Week Comments Defer 0 (1 standard drink = 0.6 oz pur e alcohol) Comments Unknown Sex and Gender Information Value Date Recorded Sex Assigned at Not on file Legal Sex Female 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 Gender Identity Not on file Sexual Orientation Not on file 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, 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 file No t on file Obstetrics History Last Filed Vital Signs Vital Sign Reading Time Taken Comments Blood Pressure 160/77 07/06/2024 8:29 AM CDT Pulse 58 07/06/2024 8:29 AM CDT Temperature 36.3 C (97.4 F) 07/06/2024 8:29 AM CDT Respiratory Rate 14 10/18/2019 8:34 AM CDT Oxygen Saturation 97% 07/06/2024 8:29 AM CDT Inhaled Oxygen Concentration - - Weight 54.4 kg (120 lb) 07/06/2024 8:29 AM CDT Height 149.9 cm (4' 11) 07/06/2024 8:29 AM CDT Body Mass Index 24.24 07/06/2024 8:29 AM CDT Plan of Treatment Health Maintenance Due Date Last Done Comments Depression Screening 1940 Osteoporosis Screening-Bone Density Scan 1940 DTaP/Tdap/Td Vaccine (1 - Tdap) 1951 Hepatitis B Screening 1958 Pneumococcal vaccine 65+ (1 of 2 - PCV) 1959 Well Visit 65+ 2005 Zoster Vaccine (2 of 3) 06/17/2015 04/22/2015 Fall Risk Assessment 10/17/2020 10/18/2019 Influenza Vaccine (#1) 2024 6, 12/12/2013, 11/29/2012 Medical Devices Implanted Type Area Compressor Battery Pellets Device Identifier Shelf Expiration Date Model / Serial / Lot Cardiac Stent Heart Procedures Procedure Name Priority Date/Time Associated Diagnosis Comments PULMONARY FUNCTION TEST (PFT) Routine 07/29/2024 12:50 PM CDT Dyspnea on exertion 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 Essential hypertension ILD (interstitial lung disease) (HCC) from Last 3 Months Results * Pulmonary Function Test - (07/29/2024 12:50 PM CDT) FVC PRE 1.84 L [facility] FVC %PRE PRED 96 % [facility] FEV1 PRE 1.59 L [facility] FEV1 %PRE PRED 107 % [facility] FEV1/FVC PRE 86.3 % [facility] FRC PL PRE 1.78 L [facility] FRC PL %PRE PRED 74 % [facility] RV PRE 1.24 L [facility] RV %PRE PRED 57 % [facility] TLC PRE 3.04 L [facility] TLC %PRE PRED 73 % [facility] DLCO PRE 9.6 ml/min/mmH g [facility] DLCO %PRE PRED 62 % [facility] Anatomical Region Laterality Modality PFT 07/29/2024 12:0 8 PM CDT Narrative 07/30/2024 9:54 PM CDT Table formatting from the original result was not included. [facility] Division of Pulmonary & Critical Care Medicine [address] [place] [address]; [address]; [place] [address]; [phone] Pulmonary Function Laboratory Pulmonary Stress Test Simple/Oxygen Assessment Patient: Ashley Sanderson Date: 07/29/2024 : 1940 Ht: 58 IN Wt: 120 LBS Time (min) Distance (ft)/ Maxwell O2 L/M SpO2 HR Shlomo* BP FEV1 % Pred Rest: RA 100 68 0 158/86 1.59 107 % Walk/Bike: 1 RA 100 89 0 2 RA 100 88 0 3 RA 98 88 0 4 RA 100 102 0.5 5 RA 100 108 1 6 min 0 sec RA Recovery: 1 RA 100 68 0 108/89 3 RA 100 66 0 *Shlomo rate of perceived exertion (1-10 dyspnea scale) Casey, CHEST 2003; [id number] Walk Test Summary: Six Minute Walk Distance: 1010 ft Six-minute Walk Work [distance (m) x body wt (kg)]: 36602 kg.m (normal >60,000kg.m) Oxygen required to maintain SpO2 greater than 90% during six minutes of walkin L/M Comments: WFD/O2A- TEST TERMINATED PER PATIENT REQUEST C/O OF INCREASE HEART RATE. Interpretation: Breathing room air, SpO2 is normal at rest and during exercise sufficient to increase pulse, SpO2 is stable. On this basis, SpO2 is adequate at rest breathing room air and while walking breathing room air. By signing this report, the attending pulmonary physician certifies that he/she has personally reviewed and interpreted the graphic and numerical data associated with this pulmonary function study and has reviewed and /or edited a preliminary draft report and agrees with the written final report. Will order pulmonary function tests (lung volumes, DLCO, spirometry, inhaled bronchodilator), 6 min walk test, PFT performed at:->[facility]- [id number] Procedure:->Lung Volumes Procedure:->Spirometry with Bronchodilator Procedure:->DLCO Procedure:->Walk for Distance Procedure:->Pulse Ox Lung Volumes via:->Pleth with Airway Resistance DLCO:->Lung volumes Pulmonary Function Test Interpretation SPIROMETRY: Spirometry is normal. The FEV1 and FVC are normal. The FEV1 to FVC ratio is normal. The inspiratory loop is normal. LUNG VOLUMES: Plethysmography did not meet standards of accuracy and reproducibility. This diminishes the reliability of the results. TLC measured by plethysmography is decreased. DLCO: DLCO testing did not meet standards of accuracy and reproducibility. The diffusing capacity is mildly decreased. Impression: The testing did not meet standards of acceptability and reproducibility. This diminishes the reliability of the results. There is a mild restrictive ventilatory defect. There is a mild impairment of alveolar gas exchange by DLCO. The attending pulmonary physician certifies a physician presence in the [facility] Suite during the administration of aerosolized bronchodilator. The attending pulmonary physician certifies that he/she has reviewed and interpreted the graphic and numerical data of this pulmonary function study and agrees with the written final report. The lower limit of normal for PaO2 and %HbO2 is age dependent. However, the [facility] Pulmonary Function Laboratory defines hypoxemia as a PaO2 <56 mm Hg or a %HbO2 <89%. Starting on February of 2024 the [facility] Pulmonary Function Laboratory utilizes race neutral GLI Global normative equations. us Niles Frye MD PFT ORDERABLES Final Result from Last 3 Months Insurance MEDICARE [employer] MEDICARE Member Subscriber Plan / Payer ( fective 2005-) Name:Ashley Sanderson R Member ID:[id number] Relation to Subscriber:Self Name:Shraddha Sandersonricia Juan Subscriber ID:[id number] Payer ID:[id number] Group ID:Not on file Type:MEDICARE TRADITIONAL Address: [place] [phone] [employer] MEDICARE [employer] [employer] Advance Directives For more information, please contact: [phone] * LIMITED - No CPR (Latest Code Status on File) Date Activated Date Inactivated Comments 02/13/2021 4:04 PM Question Answer Comments Cardio Resuscitation: No Chest CompressionsNo De fibrillation/Cardioversion Ventilation: No Intubation Care Teams Director Of Enterprise Applications Relationship Specialty Start Date End Date Napoleon Ellison DO [address] [address] PCP - General Internal Medicine 06/02/24 Dilma Mccray, RN Registered Nurse 11/09/18
--- NOTE | 2024-10-12 09:25 | PC.NURSE ---
Pt states she used the bathroom just prior to arriving to ED and cannot provide urine sample at this time. States will try to go in a little bit
--- OUTSIDE RECORDS SUMMARY | 2024-10-12 09:33 | XMS_ITS ---
Author Name Auto Generated, Auto Generated Organization [facility] ices Address [address] [place] [address] Phone [phone] Care Team Providers Care Rayon Tester Name Role Phone Jose Green [phone] Functional Status No Results Mental Status [...] * Text: * Atherosclerotic heart disease of [place] coronary artery without angina pectoris* Code: * Start Date: ThuMar 11 00:00:00 2016 * End Date: * Text: * Slow transit constipation* Code: * Start Date: ThuMar 11 00:00:00 2016 * End Date: * Text: Reason for Referral Past Medical History
--- OUTSIDE RECORDS SUMMARY | 2024-10-12 09:33 | XMS_ITS ---
Author Name Auto Generated, Auto Generated Organization [facility] ices Address [address] [place] [address] Phone [phone] Care Team Providers Care Flow Manager Name Role Phone Jose Green Functional Status [...] * Text: * Atherosclerotic heart disease of [place] coronary artery without angina pectoris* Code: * Start Date: ThuMar 11 00:00:00 2016 * End Date: * Text: * Slow transit constipation* Code: * Start Date: ThuMar 11 00:00:00 2016 * End Date: * Text: Reason for Referral Past Medical History
[2024-10-12 09:34] LABS: Hematocrit 37.9 % (37.0-47.0); Hemoglobin 12.5 g/dL (12.0-15.0); Immature Granulocyte Percent A 0.5 % (0-0.5); Lymphocytes Absolute Auto 1.62 K/mm3 (0.9-3.2); Mean Corpuscular HGB Conc 33.0 g/dl (32-36); Mean Corpuscular Hemoglobin 30.0 pg (26-34); Mean Corpuscular Volume 91.1 fl (80-100); Nucleated Red Blood Cells Absolute Auto 0.000 K/mm3 (0.0-0.012); Nucleated Red Blood Cells Perc 0.0 % (0.0-0.2); Platelet Count Result 225 k/mm3 (150-375); Red Blood Count 4.16 M/mm3 (4.2-5.4); White Blood Count 6.4 K/mm3 (4.5-10.0)
--- OUTSIDE RECORDS SUMMARY | 2024-10-12 09:35 | XMS_ITS | Encounter Summary ---
Author Organization [facility] Address [address] [place] [address] Phone Care Team Providers Care Environmental Advisor Name Role Phone Kg Cao MD Primary Care Provider [phone]- [phone] Dilma Mccray RN Unavailable Unavailab Simon Jesus Primary Care Provider Napoleon Ellison DO Unavailable Napoleon Ellison DO Primary Care Provider [phone] Encounter Details Date Type Department Care Team (Late st Contact Info) Description 11/25/2017 Telephone [facility] Cardiology [address] [facility] 8th [place] [address] [place] [address] Tiffanie Villalba, MPH Social History Tobacco Use Types Packs/Day Years Used Date Smoking Tobacco: Never Smokeless Tobacco: Never Comments Unknown Sex and Gender Information Value Date Recorded Sex Assigned at Not on file 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 Gender Identity Not on file Sexual Orientation Not on file documented as of this encounter Plan of Treatment Not on file documented as of this encounter Visit Diagnoses Not on filedocumented in this encounter Care Teams Environmental Advisor Relationship Specialty Start Date End Date Kg Cao MD [address] [facility] [address] [place] [address] PCP - General 10/28/16 10/08/21 Simon Hunter PA [address] [facility] [address] [place], [place] [address] PCP - General Physician Laboratory Specialist 10/09/21 06/01/24 Napoleon Ellison DO [address] [facility] 21 [place] [address] PCP - General Internal Medicine 06/02/24 Dilma Mccray, RN Registered Nurse 11/09/18 Napoleon Ellison DO [address] [facility] 21 [place] [address] Referring Physician Internal Medicine 06/02/24 06/02/24 documented as of this encounter
--- OUTSIDE RECORDS SUMMARY | 2024-10-12 09:36 | XMS_ITS | Encounter Summary ---
Author Organization [facility] Address [address] [place] [address] Phone Care Team Providers Care Board Mill Supervisor Name Role Phone Mccray, Dilma Ann RN Unavailable Unavailab le Simon Hunter Primary Care Provider Napoleon Ellison DO Unavailable Napoleon Ellison DO Primary Care Provider [phone] Encounter Details Date Type Department Care Team (Late st Contact Info) Description 11/29/2021 Documentation [facility] [address] [place] [address] 6th Floor [address] [place] [address] Caryn Hannah RN Social History Tobacco Use Types Packs/Day Years Used Date Smoking Tobacco: Never Smokeless Tobacco: Never Alcohol Use Standard Drinks/Week Comments Defer 0 (1 standard drink = 0.6 oz pur e alcohol) Comments Unknown Sex and Gender Information Value Date Recorded Sex Assigned at Not on file 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 Gender Identity Not on file Sexual Orientation Not on file 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, 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 file No t on file documented as of this encounter Plan of Treatment Not on file documented as of this encounter Visit Diagnoses Not on filedocumented in this encounter Care Teams Board Mill Supervisor Relationship Specialty Start Date End Date Simon Hunter PA [address] [place] [address] PCP - General Physician Lock Setter 10/09/21 06/01/24 Napoleon Ellison DO [address] [place] [address] PCP - General Internal Medicine 06/02/24 Dilma Mccray, RN Registered Nurse 11/09/18 Napoleon Ellison DO [address] [facility] 21 [place] [address] Referring Physician Internal Medicine 06/02/24 06/02/24 documented as of this encounter
--- OUTSIDE RECORDS SUMMARY | 2024-10-12 09:36 | XMS_ITS | Encounter Summary ---
Author Organization [facility] Address [address] [place] [address] Phone Care Team Providers Care Counter Person Name Role Phone Mccray, Dilma Ann RN Unavailable Unavailab le Simon Hunter Primary Care Provider Napoleon Ellison DO Unavailable Napoleon Ellison DO Primary Care Provider Encounter Details Date Type Department Care Team (Late st Contact Info) Description 03/16/2023 Telephone [facility] Medicine Cardiology [address] [facility] 8th [place] [address] [place] [address] Diane Renee Social History Tobacco Use Types Packs/Day Years Used Date Smoking Tobacco: Never Smokeless Tobacco: Never Alcohol Use Standard Drinks/Week Comments Defer 0 (1 standard drink = 0.6 oz pur e alcohol) Comments Unknown Sex and Gender Information Value Date Recorded Sex Assigned at Not on file 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 Sex Female 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 Gender Identity Not on file Sexual Orientation Not on file 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, 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 file No t on file documented as of this encounter Plan of Treatment Not on file documented as of this encounter Visit Diagnoses Not on filedocumented in this encounter Care Teams Counter Person Relationship Specialty Start Date End Date Simon Hunter PA [address] [place] [address] PCP - General Physician Director Social Service 10/09/21 06/01/24 Napoleon Ellison DO [address] [facility] 21 [place] [address] PCP - General Internal Medicine 06/02/24 Dilma Mccray, RN Registered Nurse 11/09/18 Napoleon Ellison DO [address] [facility] 21 [place] [address] Referring Physician Internal Medicine 06/02/24 06/02/24 documented as of this encounter
--- OUTSIDE RECORDS SUMMARY | 2024-10-12 09:36 | XMS_ITS | Encounter Summary ---
Author Organization [facility] Healthcare Address [address] [place] [address] Care Team Providers Care Occupational Therapy Instructor Name Role Phone Kg Cao MD Primary Care Provider [phone] Dilma Mccray RN Unavailable Unavailab le Simon Hunter Primary Care Provider Napoleon Ellison DO Unavailable Napoleon Ellison DO Primary Care Provider [phone] Encounter Details Date Type Department Care Team (Late st Contact Info) Description 10/13/2019 Telephone [facility] [address] [place] [address] Laura Potts, RT Social History Tobacco Use Types Packs/Day Years Used Date Smoking Tobacco: Never Smokeless Tobacco: Never Comments Unknown Sex and Gender Information Value Date Recorded Sex Assigned at Not on file 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 Gender Identity Not on file Sexual Orientation Not on file documented as of this encounter Plan of Treatment Not on file documented as of this encounter Visit Diagnoses Not on filedocumented in this encounter Care Teams Occupational Therapy Instructor Relationship Specialty Start Date End Date Kg Cao MD [address] [facility] 120 [place], [place] [id number] PCP - General 10/28/16 10/08/21 Simon Hunter PA [address] [place] [address] PCP - General Physician Chief Compressor Station Engineer 10/09/21 06/01/24 Napoleon Ellison DO [address] [place] [address] PCP - General Internal Medicine 06/02/24 Dilma Mccray, RN Registered Nurse 11/09/18 Napoleon Ellison DO [address] [place] [address] Referring Physician Internal Medicine 06/02/24 06/02/24 documented as of this encounter
--- OUTSIDE RECORDS SUMMARY | 2024-10-12 09:36 | XMS_ITS | Clinical Summary ---
Author Organization [facility] Address [address] [facility] [place] [address] Care Team Providers Care Arcgis Developer Name Role Phone Elodia Otto MD Unavailable [phone] Kg Cao DO Primary Care Provider [phone] Source Comments [facility],non-owned Affiliates and Associated Physician Practices is amultiple site organization consisting of ambulatory clinics and hospital sitesin [place], [place], [place] and [place]. This disclosure is being madepursuant to the Care Everywhere program and may not contain all information available regarding this patient. Last updated 17.[facility] [employer] Allergies Active Allergy Reactions Criticality Noted Date [...] on file Legal Sex Female 11:32 AM PSYCHIATRIC TECH Gender Identity Not on file Sexual Orientation Not on file Last Filed Vital Signs Vital Sign Reading Time Taken Comments Blood Pressure 201/96 11/25/2017 11:27 AM CDT Pulse 54 03/26/2016 8:35 AM PSYCHIATRIC TECH Temperature 37.1 C (98.8 F) 03/11/2016 3:49 PM PSYCHIATRIC TECH Respiratory Rate 16 03/11/2016 3:49 PM PSYCHIATRIC TECH Oxygen Saturation 98% 03/11/2016 3:49 PM PSYCHIATRIC TECH Inhaled Oxygen Concentration - - Weight 61.2 [...] MEDICARE COMMERCIAL GENERIC COMMERCIAL GENERIC Care Teams Arcgis Developer Relationship Specialty Start Date End Date Kg Cao DO [address] [facility] [address] [place] [address] PCP - General Internal Medicine 11/09/12 Elodia Otto MD [address] [place] [address] Orthopedic Surgery 11/09/12
--- OUTSIDE RECORDS SUMMARY | 2024-10-12 09:36 | XMS_ITS | Encounter Summary ---
Author Organization [facility] Address [address] [place] [address] Care Team Providers Care Decorating Instructor Name Role Phone Kg Cao MD Primary Care Provider [phone] Dilma Mccray RN Unavailable Unavailab Simon Jesus Primary Care Provider Napoleon Ellison DO Unavailable Napoleon Ellison DO Primary Care Provider [phone] Encounter Details Date Type Department Care Team (Late st Contact Info) Description 11/09/2020 Telephone [facility] Radiology 1 [place] [address] Mickie Escobar MD PhD [address] [place] [address] Social History Tobacco Use Types Packs/Day Years Used Date Smoking Tobacco: Never Smokeless Tobacco: Never Alcohol Use Standard Drinks/Week Comments Defer 0 (1 standard drink = 0.6 oz pur e alcohol) Comments Unknown Sex and Gender Information Value Date Recorded Sex Assigned at Not on file 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 Gender Identity Not on file Sexual Orientation Not on file 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, 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 file No t on file documented as of this encounter Plan of Treatment Not on file documented as of this encounter Visit Diagnoses Not on filedocumented in this encounter Care Teams Decorating Instructor Relationship Specialty Start Date End Date Kg Cao MD [address] [place] [address] PCP - General 10/28/16 10/08/21 Simon Hunter PA [address] [place] [address] PCP - General Physician Business Advisor 10/09/21 06/01/24 Napoleon Ellison DO [address] [place] [address] PCP - General Internal Medicine 06/02/24 Dilma Mccray, RN Registered Nurse 11/09/18 Napoleon Ellison DO [address] [place] [address] Referring Physician Internal Medicine 06/02/24 06/02/24 documented as of this encounter
--- OUTSIDE RECORDS SUMMARY | 2024-10-12 09:36 | XMS_ITS | Encounter Summary ---
Author Organization [facility] Healthcare Address [address] [place] [address] Care Team Providers Care Employment Case Manager Name Role Phone Kg Cao MD Primary Care Provider [phone] Dilma Mccray RN Unavailable Unavailab Simon eJsus Primary Care Provider Napoleon Ellison DO Unavailable Napoleon Ellison DO Primary Care Provider [phone] Encounter Details Date Type Department Care Team (Late st Contact Info) Description 11/03/2019 Telephone [facility] Radiology [address] [place], [place] [id number] Anant Ely MD [address] [facility] [address] [place], [place] [id number] Social History Tobacco Use Types Packs/Day Years Used Date Smoking Tobacco: Never Smokeless Tobacco: Never Alcohol Use Standard Drinks/Week Comments Defer 0 (1 standard drink = 0.6 oz pur e alcohol) Comments Unknown Sex and Gender Information Value Date Recorded Sex Assigned at Not on file 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 Gender Identity Not on file Sexual Orientation Not on file documented as of this encounter Plan of Treatment Not on file documented as of this encounter Visit Diagnoses Not on filedocumented in this encounter Care Teams Employment Case Manager Relationship Specialty Start Date End Date Kg Cao MD [address] [place] [address] PCP - General 10/28/16 10/08/21 Simon Hunter PA [address] [place] [address] PCP - General Physician Appliance Service Representative 10/09/21 06/01/24 Napoleon Ellison DO [address] [place] [address] PCP - General Internal Medicine 06/02/24 Dilma Mccray, RN Registered Nurse 11/09/18 Napoleon Ellison DO [address] [place] [address] Referring Physician Internal Medicine 06/02/24 06/02/24 documented as of this encounter
--- OUTSIDE RECORDS SUMMARY | 2024-10-12 09:36 | XMS_ITS | Clinical Summary ---
Author Organization [facility] [address] [facility] [facility] Address [address] [place] [address] [place] [address] Care Team Providers Care Saddle And Side Wire Stitcher Name Role Phone Mccray, Dilma Ann RN Unavailable Unavailab Napoleon Randolph DO Primary Care Provider [phone] Allergies Active Allergy Reactions Criticality Noted Date [...] Type Department Care Team Description 08/05/2024 Telephone [facility] [address] [place] [address] Caryn Hannah RN 08/05/2024 Telephone [facility] Cardiology [facility] 8th [place] [address] [place] [address] Niles Frye MD Scheduling Testing/Treatment 08/05/2024 Results Follow-Up [facility] 8th [place] [address] [place] [address] Niles Frye MD Pulmonary Function Test - 08/04/2024 Telephone [facility] [address] [place] [address] Caryn Hannah RN 07/29/2024 11:50 AM CDT - 07/29/2024 11:59 PM CDT Hospital Encounter [facility] Pulmonary [facility] [address] [place] [address] Dyspnea on exertion; Coronary artery disease of [place] artery of [place] heart with stable angina pectoris; Essential hypertension; ILD (interstitial lung disease) ([facility]) Discharge Disposition: Discharge to home or self care 07/25/2024 Telephone [facility] Cardiology [address] [facility] Medical Office Building [address] [place] [address] Niles Frye MD lab reminder 07/13/2024 Telephone [facility] [address] [place] [address] [address] [place] [address] Caryn Hannah, RN 07/12/2024 Telephone [facility] [address] [place] [address] Caryn Hannah RN from Last 3 Months Surgical History Surgery Date Site/Laterality Comments [place] TOTAL ABDOMINAL HYSTERECT W/WO RMVL TUBE OVARY Hysterectomy - (Added by [employer]) [place] ARTHROPLASTY KNEE TIBIAL PLATEAU Knee Replacement - Right (Added by TW Conv) BACK SURGERY TONSILECTOMY, ADENOIDECTOMY, BILATERAL MYRINGOTOMY AND TUBES only tonsilectomy Medical History Medical History Date Comments Personal history of other di seases of the circulatory system History of hypertension - (A dded by [employer]) Personal history of other en docrine, nutritional and metabolic disease History of hyperlipi demia - (Added by [employer]) Syncope Cataract Heart attack (HCC) HTN (hypertension) Thyroid condition Alzheimer disease Family History Medical History Relation Name Comments Stroke Brother 1 Stroke Syndrome - Father - at age 83, Brother - stroke at age 48. (Added by [employer]) Aortic aneurysm Brother 2 Family histo ry of aortic aneurysm - (Added by [employer]) Heart attack Brother 3 Family history of heart attack - (Added by [employer]) Breast cancer Brother 4 Adenocarcinoma of breast - (Added by [employer]) Lung cancer Brother 5 Family history of lung cancer - (Added by [employer] Conv) Heart attack Brother 6 Family history of heart attack - (Added by [employer] Conv) Cancer Brother 7 Family history of cancer - (Added by [employer]) Stroke Brother 8 Family history of stroke - (Added by [employer]) Alzheimer's disease Father Family h istory of Alzheimer's disease - (Added by [employer]) Stroke Father Stroke Syndrome - Father - at age 83, Brother - stroke at age 48. 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 [...] 12/12/2013, 11/29/2012 Medical Devices Implanted Type Area Middle Card Tender Device Identifier Shelf Expiration Date Model / Serial / Lot Cardiac Stent Heart Procedures Procedure Name Priority Date/Time Associated Diagnosis Comments PULMONARY FUNCTION TEST (PFT) Routine 07/29/2024 12:50 PM CDT Dyspnea on exertion Coronary artery disease of [place] artery of [place] tribe heart with stable angina pectoris Essential hypertension ILD (interstitial lung disease) (HCC) from Last 3 Months Results * Pulmonary Function Test - (07/29/2024 12:50 PM CDT) FVC PRE 1.84 L [facility] FVC %PRE PRED 96 % [facility] FEV1 PRE 1.59 L [facility] FEV1 %PRE PRED 107 % [facility] FEV1/FVC PRE 86.3 % [facility] FRC PL PRE 1.78 L [facility] FRC PL %PRE PRED 74 % [facility] RV PRE 1.24 L [facility] RV %PRE PRED 57 % [facility] TLC PRE 3.04 L [facility] TLC %PRE PRED 73 % [facility] DLCO PRE 9.6 ml/min/mmH g [facility] DLCO %PRE PRED 62 % [facility] Anatomical Region Laterality Modality PFT 07/29/2024 12:0 8 PM CDT Narrative 07/30/2024 9:54 PM CDT Table formatting from the original result was not included. [facility] Pulmonary & Critical Care Medicine [address] [place] [address]; [address]; [place] [address]; [phone] Pulmonary Function Laboratory Pulmonary Stress Test Simple/Oxygen [...] Work [distance (m) x body wt (kg)]: 84859 kg.m (normal >60,000kg.m) Oxygen required to maintain [...] bronchodilator), 6 min walk test, PFT performed at:->[facility] Adult PFT Lab- CAM-8D Procedure:->Lung Volumes Procedure:->Spirometry [...] and %HbO2 is age dependent. However, the [facility] Pul[facility] Function [facility] defines hypoxemia as a PaO2 <56 mm Hg or a %HbO2 <89%. Starting on February of 2024 the [facility] utilizes race neutral GLI Global normative equations. us Niles Frye MD PFT ORDERABLES Final Result from Last 3 Months Insurance MEDICARE [employer] MEDICARE Member Subscriber Plan / Payer ( fective 2005-) Name:Ashley Sanderson R Member ID:[id number] Relation to Subscriber:Self Name:Shraddha Sandersonricia Juan Subscriber ID:[id number] Payer ID:[id number] Group ID:Not on file Type:MEDICARE TRADITIONAL Address: [place] [id number] [employer] MEDICARE [employer] Advance Directives For more information, please contact: [phone] * LIMITED - No CPR (Latest Code Status on File) Date Activated Date Inactivated Comments 02/13/2021 4:04 PM Question Answer Comments Cardio Resuscitation: No Chest CompressionsNo De fibrillation/Cardioversion Ventilation: No Intubation Care Teams Saddle And Side Wire Stitcher Relationship Specialty Start Date End Date Napoleon Ellison DO [address] [address] PCP - General Internal Medicine 06/02/24 Dilma Mccray, RN Registered Nurse 11/09/18
[2024-10-12 09:47] LABS: Alanine Aminotransferase 22 U/L (6-35); Albumin Level 3.8 g/dL (3.5-5.1); Alkaline Phosphatase 63 U/L (38-126); Anion Gap 8 mmol/L (4-12); Aspartate Amino Transferase 33 U/L (14-36); Bilirubin,Total 0.3 mg/dL (0.2-1.3); Blood Urea Nitrogen 12 mg/dL (7-17); Calcium 9.0 mg/dL (8.4-10.2); Carbon Dioxide 24 mmol/L (22-30); Chloride 105 mmol/L (98-107); Estimated Glomerular Filt Rate 51; Glucose 125 mg/dL (65-110); Potassium 3.7 mmol/L (3.4-5.0); Sodium 137 mmol/L (137-145); Total Protein 7.0 g/dL (6.3-8.2)
[2024-10-12 09:48] LABS: INR 1.0; Prothrombin Time 13.3 Seconds (11.1-14.7)
[2024-10-12 09:49] LABS: Partial Thromboplastin Time 34.7 Seconds (22.3-36.8)
--- NOTE | 2024-10-12 10:14 | ED.GIBLEED ---
HPI - GI Bleed General Chief complaint: GI Bleed Stated complaint: BLOOD IN EXCREMENT Time Seen by Provider: 10/12/24 09:12 Source: patient Mode of arrival: ambulatory Limitations: dementia History of Present Illness HPI Narrative: This is an 84-year-old female that presents to the emergency department for blood in her urine. Ongoing since yesterday. Reports some urinary frequency. Also reports she had blood in the stool, reporting it looked dark. She does not take blood thinners. Denies fevers, abdominal pain, vomiting. Related Data Home Medications ?Medication ?Instructions ?Recorded ?Confirmed ?Last Taken ?Type aspirin 81 mg tablet,delayed 81 mg PO DAILY 03/01/19 08/12/24 07/16/20 History release (Adult Low Dose Aspirin) multivitamin with minerals 1 tablet PO DAILY 03/01/19 08/12/24 07/16/20 History (Hair,Skin and Nails tablet) indapamide 1.25 mg tablet 1.25 mg PO DAILY 04/08/19 08/12/24 07/17/20 History gabapentin 400 mg capsule 400 mg PO TID 10/31/22 08/12/24 Unknown History mirtazapine 15 mg tablet 15 mg PO QHS 10/31/22 08/12/24 Unknown History nitroglycerin 0.4 mg sublingual 0.4 mg sublingual Q5M PRN 10/31/22 08/12/24 Unknown History tablet Allergies Allergy/AdvReac Type Severity Reaction Status Date / Time codeine Allergy Intermediate vision Verified 10/12/24 09:08 changes sulfamethoxazole Allergy Mild couldn't Verified 10/12/24 09:08 urinate, Back Pain topiramate Allergy Mild Can't Verified 10/12/24 09:08 urinate trimethoprim Allergy Mild couldn't Verified 10/12/24 09:08 urinate, back pain Review of Systems Review of Systems: All systems reviewed & are unremarkable except as noted in HPI and below PMFSH Past Medical History Medical History (Updated 10/12/24 @ 12:33 by Virginia Hernandez PA-C) BMI 24.0-24.9, adult Other fatigue Nausea Hyperglycemia Bradycardia Weight loss Screening for breast cancer Pure hypercholesterolemia Hx of colonic polyps Gastro-esophageal reflux disease without esophagitis Essential (primary) hypertension Epigastric pain Cough Back pain with right-sided radiculopathy Allergic rhinitis, unspecified Acute coryza Sacral fracture, closed Anemia Hypothyroidism Back pain Arthritis GERD (gastroesophageal reflux disease) Rectal polyp Hemorrhoids Pneumonia Hypertension Hypercholesteremia CAD (coronary artery disease) Mid left anterior descending stent in 2016 at [facility] Chronic headaches Dementia Surgical History Surgical History History of lumpectomy X3 that were benign. History of hernia surgery History of total right knee replacement History of spinal surgery History of hysterectomy Hx of cardiac catheterization History of tonsillectomy H/O bilateral cataract extraction Family History Family History (Updated 02/04/24 @ 08:48 by CHRISTA Franks) Sibling Acute myocardial infarction, Onset Age: 73 Cerebrovascular accident, Onset Age: 52 Family history of lung cancer, Onset Age: 72 Patient's sister is Patient's brother is Mother Patient's mother is Heart disease Social History Social History (Updated 02/04/24 @ 08:49 by CHRISTA Franks) Social History: The patient is To Colton who is her power transactional attorney. She desires to be a full code. She has 2 children. She is retired from working at a [employer] company Smoking status: Never smoker Second hand tobacco smoke exposure: Yes Alcohol intake: never Substance use: never Substance use type: does not use Do You Feel Safe in your Home?: Yes Lack of Transportation: No Lack of Food: Never True Current Housing: I Have Housing Concerned About Future Housing: No Difficulty Paying Gas/Electric Bills: No Difficulty Paying for Meds: No Currently Unemployed: No Education: High School Diploma/GED Difficulty w/ Childcare or Family Care: No Living arrangements: with family Occupation/Education: retired Additional occupation/education comments: 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 Gender identity (if verbalized by the patient): Female Spiritual care concerns: No Agree to blood products: Yes Exam Narrative: GENERAL: Elderly, well-nourished, and in no acute distress. HEAD: Normocephalic, atraumatic. EYES: EOMI. CHEST: Clear to auscultation. No respiratory distress. No wheezes rales or rhonchi HEART: Regular rate and rhythm. No murmur heard. Normal peripheral pulses. ABDOMEN: Soft, nontender, nondistended, normal active bowel sounds. EXTREMITIES: Normal range of motion. No edema. SKIN: Warm, dry, no rash. NEURO: No focal deficits. Alert and oriented x3. PSYCH: Normal mood and affect RECTAL: No obvious hemorrhoids or fissures. Stool is dark brown, Hemoccult-negative Course Course Emergency Course: patient and family updated on her workup and agree with plan of care Vital Signs Vital signs: Vital Signs Temperature 97.5 F L 10/12/24 09:02 Pulse Rate 58 L 10/12/24 09:02 Respiratory Rate 12 10/12/24 09:02 Blood Pressure 166/93 H 10/12/24 09:02 Pulse Oximetry 98 10/12/24 09:02 Oxygen Delivery Room Air 10/12/24 09:02 Temperature 97.5 F L 10/12/24 09:02 Pulse Rate 51 L 10/12/24 13:49 Respiratory Rate 12 10/12/24 13:49 Blood Pressure 169/76 H 10/12/24 11:29 Pulse Oximetry 97 10/12/24 13:49 Oxygen Delivery Room Air 10/12/24 09:02 MDM - GI Bleed MDM Narrative Medical decision making narrative: Patient presents to the emergency department for blood in her urine. Noted since yesterday. Also reporting that her stools appeared dark. Her vitals are stable. Hemoglobin is normal. Urine with 6-10 white blood cells, no concern for infection. CT abdomen pelvis shows a calcified mass in the pancreas. Asymmetric thickening of the yan of the bladder. Patient is Hemoccult negative. Stool is brown. She is not on anticoagulation. Patient and family updated on workup and agree with care. She is to follow up with her primary provider and Urology. She was given warnings to return to the ER Differential Diagnosis Differential diagnosis: Likely hemorrhoids, Upper gastrointestinal hemorrhage, Lower gastrointestinal hemorrhage, hematochezia, melena and anal fissure Lab Data Attestation: I reviewed the patient's lab results. 10/12/24 09:21 10/12/24 09:21 Labs: Lab Results 10/12/24 10/12/24 Range/Units 09:21 10:05 WBC 6.4 (4.5-10.0) K/mm3 RBC 4.16 L (4.2-5.4) M/mm3 Hgb 12.5 (12.0-15.0) g/dL Hct 37.9 (37.0-47.0) % MCV 91.1 (80-100) fl MCH 30.0 (26-34) pg MCHC 33.0 (32-36) g/dl RDW 13.9 (11.5-14.5) % Plt Count 225 (150-375) k/mm3 MPV 9.5 (7.4-10.4) fl Immature Gran % (Auto) 0.5 (0-0.5) % Neut % (Auto) 62.7 (45.5-73.1) % Lymph % (Auto) 25.4 (18.3-44.2) % [place] % (Auto) 8.8 H (2.6-8.5) % Eos % (Auto) 2.0 (0-4.4) % Baso % (Auto) 0.6 (0.2-1.2) % Lymph # (Auto) 1.62 (0.9-3.2) K/mm3 [place] # (Auto) 0.6 (0.1-0.6) K/mm3 Eos # (Auto) 0.1 (0-0.3) K/mm3 Baso # (Auto) 0.0 (0.0-0.1) K/mm3 Abs Immat Gran (auto) 0.03 (0.00-0.031) K/mm3 Absolute Neuts (auto) 4.0 (1.3-6.7) K/mm3 Absolute Nucleated RBC 0.000 (0.0-0.012) K/mm3 Nucleated RBC % 0.0 (0.0-0.2) % PT 13.3 (11.1-14.7) Seconds INR 1.0 APTT 34.7 (22.3-36.8) Seconds Sodium 137 (137-145) mmol/L Potassium 3.7 (3.4-5.0) mmol/L Chloride 105 (98-107) mmol/L Carbon Dioxide 24 (22-30) mmol/L Anion Gap 8 (4-12) mmol/L BUN 12 (7-17) mg/dL Creatinine 1.03 H (0.7-1.0) mg/dL Estim Creat Clear Calc Not Reportable Estimated GFR 51 L (59 - ) Glucose 125 H (65-110) mg/dL Calcium 9.0 (8.4-10.2) mg/dL Total Bilirubin 0.3 (0.2-1.3) mg/dL AST 33 (14-36) U/L ALT 22 (6-35) U/L Alkaline Phosphatase 63 (38-126) U/L Total Protein 7.0 (6.3-8.2) g/dL Albumin 3.8 (3.5-5.1) g/dL Lipase 91 (23-300) U/L Urine Color Yellow (Yellow) Urine Appearance Cloudy H (Clear) Urine pH 6.0 (5.0-9.0) Ur Specific [place] 1.015 (1.001-1.035) Urine Protein Negative (Negative) mg/dL Urine Glucose (UA) Negative (Negative) mg/dL Urine Ketones Negative (Negative) mg/dL Ur Blood (Man) Negative (Negative) Urine Nitrate Negative (Negative) Urine Bilirubin Negative (Negative) Urine Urobilinogen 1.0 (<2.0) mg/dL Add Ur Microanalysis Reviewed Leukocyte Esterase Rfl 1+ H (Negative) MANI/UL Urine RBC 6-10 H (0-2) /hpf Urine WBC 0-5 (0-3) /hpf Ur Squamous Epith Cells Occasional (Few) /hpf Calcium Oxalate Crystal Present (None) /hpf Urine Bacteria Rare /hpf Urine Casts 0-2 Blood Type AB Positive Antibody Screen Positive Antibody Identification Anti-E Antigen Identification TNP JEREMY, IgG Interpret Not Performed JEREMY, Poly Interpret Negative JEREMY, Complement Interp Not Performed Enhanced Crossmatch See Detail Imaging Data Radiologist's impression: ITS Impressions Abdomen/Pelvis CT 10/12/24 11:59 IMPRESSION: 1. There is a new 1.4 cm calcified mass in the pancreatic head with new pancreatic ductal dilation and pancreatic atrophy. A pancreatic mass CT or MRI is recommended for further assessment. 2. Asymmetric thickening of the lateral and anterior yan of the bladder. The findings are nonspecific. Cystitis is possible. An underlying mass is possible. Consider direct visualization. 3. No CT evidence for renal, ureteral or bladder calculi. Critical Care Time Critical Care Time Critical Care Time: No Discharge Plan Discharge Clinical Impression: Mass of pancreas, Bladder wall thickening Hematuria Qualifiers: Hematuria type: unspecified type Qualified Code(s): R31.9 - Hematuria, unspecified Patient Disposition: Home Condition: Stable Instructions: Antibiotic Form Additional Instructions: Return to the ER if you experience fever, abdominal pain with nausea and vomiting, you are unable to keep down liquids or solids, or any other symptoms that are concerning to you The radiologist is recommending further imaging of your pancreas and of your bladder Follow up with your primary care doctor and urology for further evaluation Patient Language: Vietnamese Prescriptions: No Action amlodipine 5 mg tablet 5 mg PO DAILY Qty: 90 1RF gabapentin 400 mg capsule 400 mg PO TID mirtazapine 15 mg tablet 15 mg PO QHS nitroglycerin 0.4 mg tablet, sublingual 0.4 mg sublingual Q5M PRN Rx Instructions: do not exceed 3 doses per episode lisinopril 20 mg tablet 20 mg PO DAILY Qty: 90 2RF aspirin [Adult Low Dose Aspirin] 81 mg tablet,delayed release (DR/EC) 81 mg PO DAILY multivitamin with minerals [Hair,Skin and Nails] Tablet 1 tablet PO DAILY indapamide 1.25 mg tablet 1.25 mg PO DAILY cyclobenzaprine 10 mg tablet 5 mg PO HS PRN (Reason: muscle spasm) Qty: 20 0RF donepezil 10 mg tablet 10 mg PO QHS Qty: 90 3RF atorvastatin 80 mg tablet 80 mg PO DAILY Qty: 90 3RF levothyroxine [Euthyrox] 125 mcg tablet 125 mcg PO DAILY Qty: 90 2RF Follow-up/Referrals: Matthew Rodarte MD [Physician, Urology] Napoleon Ellison DO [Primary Care Provider, Internal Medicine]
[2024-10-12 10:31] LABS: Add Urine Microscopic? YES; Appearance Urine Cloudy (Clear); Glucose Urine UA Negative (Negative); Leukocyte Esterase Ur 1+ LEU/UL (Negative); Need Manual Microscopic Reviewed; Nitrate Urine Negative (Negative); Non Pathogenic Casts 0-2; Specific Grav Ur 1.015 (1.001-1.035)
[2024-10-12 13:38] LABS: Lipase 91 U/L (23-300)
== END 2024-10-12 14:06 | disposition home or self-care (01) ==
PROVIDERS: Emergency Medicine; Emergency Provider Physician Assistant; PCP Internal Medicine
DX: R31.9 Hematuria, unspecified (principal); K86.9 Disease of pancreas, unspecified; R93.41 Abnormal radiologic findings on diagnostic imaging of renal pelvis, ureter, or bladder; F03.90 Unspecified dementia, unspecified severity, without behavioral disturbance, psychotic disturbance, mood disturbance, and anxiety; I10 Essential (primary) hypertension; I25.10 Atherosclerotic heart disease of native coronary artery without angina pectoris; I25.2 Old myocardial infarction; E03.9 Hypothyroidism, unspecified; E78.00 Pure hypercholesterolemia, unspecified; M19.90 Unspecified osteoarthritis, unspecified site; K21.9 Gastro-esophageal reflux disease without esophagitis; Z96.651 Presence of right artificial knee joint; Z86.2 Personal history of diseases of the blood and blood-forming organs and certain disorders involving the immune mechanism; Z87.01 Personal history of pneumonia (recurrent); Z86.0100 Personal history of colon polyps, unspecified; Z90.710 Acquired absence of both cervix and uterus; Z98.42 Cataract extraction status, left eye; Z98.41 Cataract extraction status, right eye; Z77.22 Contact with and (suspected) exposure to environmental tobacco smoke (acute) (chronic)
CPT/HCPCS: 36415; 74177; 80053; 81001; 83690; 85025; 85610; 85730; 86850; 86880; 86900; 86901; 86902; 86922; 87086; 99284; Q9967

== ENCOUNTER 2024-12-29 08:12 | Outpatient (CLI) | payer MEDICARE, OTHER, SELFPAY ==
--- OUTSIDE RECORDS SUMMARY | 2008-11-17 04:15 | XMS_ITS | Continuity of Care Document ---
Author Organization [facility] [place] [address] [place] [address] Phone Care Team Providers Care Abrasive Grader Name Role Phone Piter Hernandez Unavailable Unavailable Procedures Procedure Date Eye Exam & Treatment No Script BF Plastic Sphcyl [place] To +/-4d .12-2d Vision Svcs Frames Purchases Frames Deluxe Scratch Resistant Coating Post-op Follow-up Visit Refraction Post-op Follow-up Visit Remove Cataract, Insert Lens Office/outpatient Visit, Est Echo Exam Of Eye-Professional 8 Eye Exam & Treatment Visual Functional Status Assessed Refraction Advance Directives Directive Yes / No Effective Date File Name No Information Encounters Encounter Description Practice Location Reason(s) For Visit Diagnoses Date Provider Providers Copied on Encounter [facility], [address] [place] [address] [address], [place], [place], [address], [place] tel:[phone] SEC [facility] No Information 9 David Dumas. [address] , [address], [place], [address], [place]. tel:[phone] [facility], [address] [place] [address] [address], [place], [place], [address], [place] tel:[phone] SEC [facility] No Information 9 [facility] . [address], [address], [place], [place], [address], [place]. tel:[phone] Referring Provider: Rosy Nance [employer] [address], [place], [address]. tel:[phone] [facility], [address] [place] [address] [address], [place], [place], [address], [place] tel:[phone] SEC [facility] No Information [address] David Dumas. [facility] [address], [address], [place], [address], [place]. tel:[phone] [facility], [address] [place] [address] [address], [place], [place], [address], [place] tel:[phone] SEC [facility] No Information 3 8 David Dumas. [facility] [address], [address], [place], [place], [facility], [place]. tel:[phone] [facility], [address] [place] [address] [address], [place], [place], [address], [place] tel:[phone] [facility] No Information [address] David Dumas. [facility] [address], [address], [place], [address], [place]. tel:[phone] Office/outpat ient Visit, Est [facility], [address] [place] [address] [address], [place], [place], [address], [place] tel:[phone] SEC [facility] No Information 200 8 David Dumas. [facility] [address], [address], [place], [address], [place]. tel:[phone] Referring Provider: Rosy [employer] [address], [place], [place], [facility]. tel:[phone] [facility], [address], [place], [place], [address], [place] tel:[phone] [facility] No Information 200 7 David Dumas. [address], [address], [place], [address], [place]. tel:[phone] Family History Family Member Type Diagnosis Age At Onset No Information Payers Payer name Insurance type Covered libertarian ID Authoriza tion(s) [place] [id number] Social History Type Description Quantity Date Captured Comments Sex Female Smoking Status No Information Chief Complaint And Reason For Visit No Information Reason For Referral Reason For Referral No Information History Of Present Illness Encounter Date Complaint History Of Prese nt Illness No Information Functional Status Date Functional Assessmen t No Information Instructions Date Instruction Additional Infor mation No Information Assessments Type Assessment Date No Information Patient Care Teams Name Effective Dates (start - stop) Status Members No Information
--- NOTE | ~2024-12-29 | MR_ITS ---
EXAM/PROCEDURE: MR MRCP wo/w con/w 3D wo ind HISTORY: K86.9 - Disease of pancreas, unspecified COMPARISON: None available. TECHNIQUE: Contrast-enhanced multiplanar MRI of the abdomen with MRCP technique. Contrast: 12 mL MultiHance FINDINGS: The gallbladder is mildly distended with no Cholelithiasis gallbladder wall thickening or pericholecystic fluid appreciated. Common bile duct is upper limits normal measuring approximately 7.4 mm in diameter. No choledocholithiasis is clearly identified. Bilateral renal cysts noted. Splenic varices noted. The pancreas is atrophied and fatty-replaced but no discrete lesion or mass seen. Aorta normal size. Duodenum CT abdomen the left midline. IMPRESSION: 1. Mildly distended gallbladder with no cholelithiasis or choledocholithiasis identified. 2. No discrete or acute abnormality identified involving the pancreas other than atrophic appearing changes. 3. Other findings as above. Reviewed, dictated and finalized at location A. ESTIMATOR IMPRESSION: 1. Mildly distended gallbladder with no cholelithiasis or choledocholithiasis i dentified. 2. No discrete or acute abnormality identified involving the pancreas other emily n atrophic appearing changes. 3. Other findings as above.
--- OUTSIDE RECORDS SUMMARY | 2024-12-29 17:05 | XMS_ITS | Encounter Summary ---
Author Organization [facility] Healthcare Address [address] [place] [address] Care Team Providers Care Value Advisor Name Role Phone Kg Cao MD Primary Care Provider [phone] Dilma Mccray RN Unavailable Unavailab Simon Jesus Primary Care Provider Napoleon Ellison DO Unavailable Napoleon Ellison DO Primary Care Provider [phone] Encounter Details Date Type Department Care Team (Late st Contact Info) Description 11/03/2019 Telephone [facility] Radiology [address] [place], [place] [id number] Anant Ely MD [address] [facility] [address] [place], [place] [id number] Social History Tobacco Use Types Packs/Day Years Used Date Smoking Tobacco: Never Smokeless Tobacco: Never Alcohol Use Standard Drinks/Week Comments Defer 0 (1 standard drink = 0.6 oz pur e alcohol) Comments Unknown Sex and Gender Information Value Date Recorded Sex Assigned at Not on file Legal Sex Female 1:24 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 Gender Identity Not on file Sexual Orientation Not on file documented as of this encounter Plan of Treatment Not on file documented as of this encounter Visit Diagnoses Not on filedocumented in this encounter Care Teams Value Advisor Relationship Specialty Start Date End Date Kg Cao MD [address] [place] [address] PCP - General 10/28/16 10/08/21 Simon Hunter PA [address] [place] [address] PCP - General Physician Doping Supervisor 10/09/21 06/01/24 Napoleon Ellison DO [address] [place] [address] PCP - General Internal Medicine 06/02/24 Dilma Mccray, RN Registered Nurse 11/09/18 Napoleon Ellison DO [address] [place] [address] Referring Physician Internal Medicine 06/02/24 06/02/24 documented as of this encounter
--- OUTSIDE RECORDS SUMMARY | 2024-12-29 17:05 | XMS_ITS | Clinical Summary ---
Author Organization [facility] Address [address] [facility] [place] [address] Care Team Providers Care Welder Experimental Name Role Phone Elodia Otto MD Unavailable [phone] Kg Cao DO Primary Care Provider [phone] Source Comments [facility],non-owned Affiliates and Associated Physician Practices is amultiple site organization consisting of ambulatory clinics and hospital sitesin [place], [place], [place] and [place]. This disclosure is being madepursuant to the Care Everywhere program and may not contain all information available regarding this patient. Last updated 17.[facility] [place] Allergies Active Allergy Reactions Criticality Noted Date [...] on file Legal Sex Female 11:32 AM PROJECT ANALYST Gender Identity Not on file Sexual Orientation Not on file Last Filed Vital Signs Vital Sign Reading Time Taken Comments Blood Pressure 201/96 11/25/2017 11:27 AM CDT Pulse 54 03/26/2016 8:35 AM PROJECT ANALYST Temperature 37.1 C (98.8 F) 03/11/2016 3:49 PM PROJECT ANALYST Respiratory Rate 16 03/11/2016 3:49 PM PROJECT ANALYST Oxygen Saturation 98% 03/11/2016 3:49 PM PROJECT ANALYST Inhaled Oxygen Concentration - - Weight 61.2 [...] yrs (1 - 1-dose 75+ series) 2015 DEPRESSION SCREENING 02/24/2024 COVID-19 VACCINE (2023-2 5 season) 2024 INFLUENZA VACCINE (#1) 2024 HEPATITIS B VACCINE [...] MEDICARE COMMERCIAL GENERIC COMMERCIAL GENERIC Care Teams Welder Experimental Relationship Specialty Start Date End Date Kg Cao DO [address] [facility] [address] [place] [address] PCP - General Internal Medicine 11/09/12 Elodia Otto MD [address] [place] [address] Orthopedic Surgery 11/09/12
--- OUTSIDE RECORDS SUMMARY | 2024-12-29 17:05 | XMS_ITS | Encounter Summary ---
Author Organization [facility] Address [address] [place] [address] Phone Care Team Providers Care Professional Advisor Name Role Phone Kg Cao MD Primary Care Provider [phone] Dilma Mccray RN Unavailable Unavailab Simon Jesus Primary Care Provider Napoleon Ellison DO Unavailable Napoleon Ellison DO Primary Care Provider [phone] Encounter Details Date Type Department Care Team (Late st Contact Info) Description 11/25/2017 Telephone [facility] Cardiology [address] [facility] 8th [place] [address] [place] [address] Tiffanie Villalba, MPH Social History Tobacco Use Types Packs/Day Years Used Date Smoking Tobacco: Never Smokeless Tobacco: Never Comments Unknown Sex and Gender Information Value Date Recorded Sex Assigned at Not on file 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 Gender Identity Not on file Sexual Orientation Not on file documented as of this encounter Plan of Treatment Not on file documented as of this encounter Visit Diagnoses Not on filedocumented in this encounter Care Teams Professional Advisor Relationship Specialty Start Date End Date Kg Cao MD [address] [facility] [address] [place] [address] PCP - General 10/28/16 10/08/21 Simon Hunter PA [address] [address] PCP - General Physician Form Coverer 10/09/21 06/01/24 Napoleon Ellison DO [address] [address] PCP - General Internal Medicine 06/02/24 Dilma Mccray, RN Registered Nurse 11/09/18 Napoleon Ellison DO [address] [address] Referring Physician Internal Medicine 06/02/24 06/02/24 documented as of this encounter
--- OUTSIDE RECORDS SUMMARY | 2024-12-29 17:05 | XMS_ITS | Encounter Summary ---
Author Organization [facility] Address [address] [place] [address] Care Team Providers Care Unbundler Name Role Phone Kg Cao MD Primary Care Provider [phone] Dilma Mccray RN Unavailable Unavailab Simon Jesus Primary Care Provider Napoleon Ellison DO Unavailable Napoleon Ellison DO Primary Care Provider [phone] Encounter Details Date Type Department Care Team (Late st Contact Info) Description 11/09/2020 Telephone [facility] Radiology [address] [place] [address] Mickie Escobar MD PhD [address] [place] [address] Social History Tobacco Use Types Packs/Day Years Used Date Smoking Tobacco: Never Smokeless Tobacco: Never Alcohol Use Standard Drinks/Week Comments Defer 0 (1 standard drink = 0.6 oz pur e alcohol) Comments Unknown Sex and Gender Information Value Date Recorded Sex Assigned at Not on file Legal Sex Female 1:24 AM RIVET PASSER Gender Identity Not on file Sexual Orientation Not on file 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, 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 file No t on file documented as of this encounter Plan of Treatment Not on file documented as of this encounter Visit Diagnoses Not on filedocumented in this encounter Care Teams Unbundler Relationship Specialty Start Date End Date Kg Cao MD [address] [place] [address] PCP - General 10/28/16 10/08/21 Simon Hunter PA [address] [place] [address] PCP - General Physician Watch Crystal Molder 10/09/21 06/01/24 Napoleon Ellison DO [address] [place] [address] PCP - General Internal Medicine 06/02/24 Dilma Mccray, RN Registered Nurse 11/09/18 Napoleon Ellison DO [address] [place] [address] Referring Physician Internal Medicine 06/02/24 06/02/24 documented as of this encounter
--- OUTSIDE RECORDS SUMMARY | 2024-12-29 17:05 | XMS_ITS | Patient Health Record ---
Author Organization [facility] Address [address] [place], [place] [id number] Care Team Providers Care Lingo Cleaner Name Role Phone KRUPA Graf Unavailable [phone] Kg Cao Unavailable Unavailable Reason For Referral No Information Medications Medication SIG (Take, Route, Frequency, Duration) Notes Start Date End Date Status cholecalciferol 0.1 MG Oral Capsule ORAL cholecalciferol 0.1 MG Oral CapsuleOriginal Medicationcholecalciferol 0.1 MG Oral Capsule *Reorder from [employer] for eRx and Interaction Alerts* 5 Active aspirin 81 MG Delayed Release Oral Tablet ORAL aspirin 81 MG Delayed Releas e Oral TabletOriginal Medicationaspirin 81 MG Delayed Release Oral Tablet *Reorder from [employer]k for eRx and Interaction Alerts* 5 Active Potassium Gluconate 2.5 MEQ Oral Tablet ORAL potassium gluconate 2.5 MEQ Oral TabletOriginal Medicationpotassium gluconate 2.5 MEQ Oral Tablet *Reorder from [employer] for eRx and Interaction Alerts* 5 Active Social History Social History Additional Details Category Social Info Options Details Migrated Social History Migrated Social History Smoking Status : Never smoked , History of tobacco use : Plan Of Treatment No Information Insurance Providers Payer Name Payer Address Payer Phone Subscriber Number Group Number Insured Name Patient Relationship to Insured Coverage Start Date Coverage End Date Medicare Part B [place] [address] [place] [address] [id number] ASHLEY CASAREZ Self - patient is the insured [employer] [address] [place] [id number] [phone] [id number] ASHLEY CASAREZ Self - patient is the insured
--- OUTSIDE RECORDS SUMMARY | 2024-12-29 17:05 | XMS_ITS | Encounter Summary ---
Author Organization [facility] Healthcare Address [address] [place] [address] Care Team Providers Care Edging Machine Feeder Name Role Phone Kg Cao MD Primary Care Provider [phone] Dilma Mccray RN Unavailable Unavailab le Simon Hunter Primary Care Provider Napoleon Ellison DO Unavailable Napoleon Ellison DO Primary Care Provider [phone] Encounter Details Date Type Department Care Team (Late st Contact Info) Description 10/13/2019 Telephone [facility] [address] [place] [address] Laura Potts, RT Social History Tobacco Use Types Packs/Day Years Used Date Smoking Tobacco: Never Smokeless Tobacco: Never Comments Unknown Sex and Gender Information Value Date Recorded Sex Assigned at Not on file Legal Sex Female 1:24 AM PANAMA HAT BLOCKER Gender Identity Not on file Sexual Orientation Not on file documented as of this encounter Plan of Treatment Not on file documented as of this encounter Visit Diagnoses Not on filedocumented in this encounter Care Teams Edging Machine Feeder Relationship Specialty Start Date End Date Kg Cao MD [address] [facility] [address] [place] [address] PCP - General 10/28/16 10/08/21 Simon Hunter PA [address] [place] [address] PCP - General Physician Paste Maker 10/09/21 06/01/24 Napoleon Ellison DO [address] [facility] [address] [place] [address] PCP - General Internal Medicine 06/02/24 Dilma Mccray, RN Registered Nurse 11/09/18 Napoleon Ellison DO [address] [facility] [address] [place] [address] Referring Physician Internal Medicine 06/02/24 06/02/24 documented as of this encounter
--- OUTSIDE RECORDS SUMMARY | 2024-12-29 17:05 | XMS_ITS | Encounter Summary ---
Author Organization [facility] Address [address] [place] [address] Phone Care Team Providers Care Hydroponics Grower Name Role Phone Mccray, Dilma Ann RN Unavailable Unavailab le Simon Hunter Primary Care Provider Napoleon Ellison DO Unavailable Napoleon Ellison DO Primary Care Provider [phone] Encounter Details Date Type Department Care Team (Late st Contact Info) Description 11/29/2021 Documentation [facility] [address] [place] [address] 6th [address] [place] [address] Caryn Hannah RN Social History Tobacco Use Types Packs/Day Years Used Date Smoking Tobacco: Never Smokeless Tobacco: Never Alcohol Use Standard Drinks/Week Comments Defer 0 (1 standard drink = 0.6 oz pur e alcohol) Comments Unknown Sex and Gender Information Value Date Recorded Sex Assigned at Not on file Legal Sex Female 1:24 AM TAX CREDIT LEASING CONSULTANT Gender Identity Not on file Sexual Orientation Not on file 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, 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 file No t on file documented as of this encounter Plan of Treatment Not on file documented as of this encounter Visit Diagnoses Not on filedocumented in this encounter Care Teams Hydroponics Grower Relationship Specialty Start Date End Date Simon Hunter PA [address] [place] [address] PCP - General Physician Lgsw 10/09/21 06/01/24 Napoleon Ellison DO [address] [facility] [address] [place] [address] PCP - General Internal Medicine 06/02/24 Dilma Mccray, RN Registered Nurse 11/09/18 Napoleon Ellison DO [address] [facility] [address] [place] [address] Referring Physician Internal Medicine 06/02/24 06/02/24 documented as of this encounter
--- OUTSIDE RECORDS SUMMARY | 2024-12-29 17:05 | XMS_ITS | Encounter Summary ---
Author Organization [facility] Address [address] [place] [address] Phone Care Team Providers Care Video Editing Intern Name Role Phone Mccray, Dilma Ann RN Unavailable Unavailab le Simon Hunter Primary Care Provider Napoleon Ellison DO Unavailable Napoleon Ellison DO Primary Care Provider [phone] Encounter Details Date Type Department Care Team (Late st Contact Info) Description 03/16/2023 Telephone [facility] Medicine Cardiology [address] [facility] Advanced Medicine 8th [place] [address] [place] [address] Diane Renee Social History Tobacco Use Types Packs/Day Years Used Date Smoking Tobacco: Never Smokeless Tobacco: Never Alcohol Use Standard Drinks/Week Comments Defer 0 (1 standard drink = 0.6 oz pur e alcohol) Comments Unknown Sex and Gender Information Value Date Recorded Sex Assigned at Not on file Legal Sex Female 1:24 AM 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 AND 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 MACHINE OPERATOR Gender Identity Not on file Sexual Orientation Not on file 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, 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 file No t on file documented as of this encounter Plan of Treatment Not on file documented as of this encounter Visit Diagnoses Not on filedocumented in this encounter Care Teams Video Editing Intern Relationship Specialty Start Date End Date Simon Hunter PA [address] [place] [address] PCP - General Physician Health And Fitness Professor 10/09/21 06/01/24 Napoleon Ellison DO [address] [facility] [address] [place] [address] PCP - General Internal Medicine 06/02/24 Dilma Mccray, RN Registered Nurse 11/09/18 Napoleon Ellison DO [address] [facility] [address] [place] [address] Referring Physician Internal Medicine 06/02/24 06/02/24 documented as of this encounter
--- OUTSIDE RECORDS SUMMARY | 2024-12-29 17:05 | XMS_ITS | Clinical Summary ---
Author Organization [facility] Address [address] [place] [address] [place] [address] Care Team Providers Care Field Crop Farmworker Name Role Phone Mccray, Dilma Ann RN Unavailable Unavailab Napoleon Randolph DO Primary Care Provider [phone] Allergies Active Allergy Reactions Criticality Noted Date [...] levothyroxine (SYNTHROID) 112 mcg tablet 3 Active isosorbide mononitrate ER (IMDUR) 30 mg [...] mouth daily 30 tablet 11 5 Active gabapentin (NEURONTIN) 400 mg capsuleIndicatio ns:Cervicogenic headache Take 1 capsule (400 mg total) by mouth 3 (three) times a day 270 capsule 3 5 Active Active Problems Problem Noted Date [...] Encounters Date Type Department Care Team Description 11/22/2024 12:30 PM CDT Office Visit [facility] Medicine General Neurology [address] [facility] 6th [address] [place] [address] Erica Hanks PA Cervicogenic headache from Last 3 Months Surgical History Surgery Date Site/Laterality Comments [facility] TOTAL ABDOMINAL HYSTERECT W/WO RMVL TUBE OVARY Hysterectomy - (Added by TW Conv) VA ARTHROPLASTY KNEE TIBIAL PLATEAU Knee Replacement - Right (Added by TW Conv) BACK SURGERY TONSILECTOMY, ADENOIDECTOMY, BILATERAL MYRINGOTOMY AND TUBES only tonsilectomy Medical History Medical History Date Comments Personal history of other di seases of the circulatory system History of hypertension - (A dded by TW Conv) Personal history of other en docrine, nutritional and metabolic disease History of hyperlipi demia - (Added by TW Conv) Syncope Cataract Heart attack (HCC) HTN (hypertension) Thyroid condition Alzheimer disease Family History Medical History Relation Name Comments Stroke Brother 1 Stroke Syndrome - Father - at age 83, Brother - stroke at age 48. (Added by TW Conv) Aortic aneurysm Brother 2 Family histo ry of aortic aneurysm - (Added by TW Conv) Heart attack Brother 3 Family history of heart attack - (Added by TW Conv) Breast cancer Brother 4 Adenocarcinoma of breast - (Added by TW Conv) Lung cancer Brother 5 Family history of lung cancer - (Added by TW Conv) Heart attack Brother 6 Family history of heart attack - (Added by TW Conv) Cancer Brother 7 Family history of cancer - (Added by TW Conv) Stroke Brother 8 Family history of stroke - (Added by TW Conv) Alzheimer's disease Father Family h istory of Alzheimer's disease - (Added by TW Conv) Stroke Father Stroke Syndrome - Father - at age 83, Brother - stroke at age 48. 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 file No t on file Last Filed Vital Signs Vital Sign Reading Time Taken Comments Blood Pressure 162/82 11/22/2024 11:52 AM CDT Pulse 69 11/22/2024 11:52 AM CDT Temperature 36.8 C (98.2 F) 11/22/2024 11:52 AM CDT Respiratory Rate 14 10/18/2019 8:34 AM CDT Oxygen Saturation 95% 11/22/2024 11:52 AM CDT Inhaled Oxygen Concentration - - Weight 56.9 kg (125 lb 8 oz) 11/22/2024 11:52 AM CDT Height 149.9 cm (4' 11) 11/22/2024 11:52 AM CDT Body Mass Index 25.35 11/22/2024 11:52 AM CDT Plan of Treatment Health Maintenance Due Date Last Done Comments Depression Screening 1940 Osteoporosis Screening-Bone Density Scan 1940 DTaP/Tdap/Td Vaccine (1 - Tdap) 1951 Hepatitis B Screening 1958 Pneumococcal vaccine 65+ (1 of 2 - PCV) 1959 Well Visit 65+ 2005 Zoster Vaccine (2 of 3) 06/18/2015 04/23/2015, 04/22 Fall Risk Assessment 10/17/2020 10/18/2019 Influenza Vaccine (#1) 2024 4, 11/26/2015, 11/25/2015, Additional history exists Medical Devices Implanted Type Area Truck Supervisor Device Identifier Shelf Expiration Date Model / Serial / Lot Cardiac Stent Heart Insurance [employer] MEDICARE [employer] Advance Directives For more information, please contact: [phone] * LIMITED - No CPR (Latest Code Status on File) Date Activated Date Inactivated Comments 02/13/2021 4:04 PM Question Answer Comments Cardio Resuscitation: No Chest CompressionsNo De fibrillation/Cardioversion Ventilation: No Intubation Care Teams Field Crop Farmworker Relationship Specialty Start Date End Date Napoleon Ellison DO PCP - General Internal Medicine 06/02/24 Dilma Mccray, RN Registered Nurse 11/09/18
== END 2024-12-29 08:13 | disposition home or self-care (01) ==
PROVIDERS: PCP Internal Medicine; Visit Provider Internal Medicine
DX: K86.9 Disease of pancreas, unspecified (principal); K82.8 Other specified diseases of gallbladder
CPT/HCPCS: 74183; 76376; A9577